=== PATIENT | female | born 1950 | race Two or more races ===

== ENCOUNTER 2022-10-24 10:07 | Outpatient (AMB) | payer OTHER, SELFPAY ==
--- NOTE | 2022-10-24 10:16 | A.OFFVIS_ITS ---
Intake Vital Signs 10/24/22 10:19 Height 5 ft 5 in Weight 165 lb BMI 27.5 BP 150/75 H Blood Pressure Location Rt brachial Position Sitting Pulse 70 Pulse Source Pulse Oximeter Pulse Oximetry (%) 98 Oxygen Delivery Method Room Air Intake Visit Reasons: Prev PNS pt of Deidre memory loss - LVM Intake Note: Patient presents for memory loss. Patient states she could be watching tv show and someone ask me 5 minutes later about the show and she'lll forget I also have a loss of balance n eeds to hang on to things so that she doesn't loose her balance. Allergies ibuprofen Allergy (Severe, Verified 10/24/22 10:23) stomach bleed Medication List - Last Reconciled 10/24/22 by Deidre Arciniega, DYLAN cyclobenzaprine 10 mg PO BID PRN dicyclomine 10 mg PO Q6H PRN docusate sodium (Colace) 100 mg PO DAILY lamotrigine 150 mg PO DAILY melatonin 3 mg PO BEDTIME meloxicam 15 mg PO DAILY omeprazole 40 mg PO QAM polyethylene glycol 3350 (Miralax) 17 grams PO BID simvastatin 10 mg PO BEDTIME trazodone 150 - 300 mg PO BEDTIME PRN venlafaxine ER 300 mg PO DAILY HPI HPI Comments History of Present Illness Details 72-yr-old female presents for f/u visit r/t worsening cognition, pt is accompanied by her dtr, Alise. She was last seen by us approx 2 yrs ago for si milar concern. Pt denies any significant interval medical changes. Pt states that over the last 6 months her memory is much worse. She states she has zero memory, forgets what she is about to do, loses her train of thought. When someone else is driving- she may forget where she is going. She tries to write notes on her hand, or leaves something out to remember that she has to do something with it. She is Ind with ADLs, cooking. oes not leave the stove or water running. Her has always paid the bills- but she is aware when certain bills are due. Pt states she cannot recall her brush polisher. She was born in [place]. 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 She left school at age 15, states she was held back several years. After school she worked in a [employer] of [employer]. She moved to the [place] in her mid-30s. Again worked in a factory for a short period, and has not worked since. 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 She currently still cares for her 2-yr-old grandchild a couple of times a week. Reviewed previous work-up- brain MRI in 2020- age-related changes. Lab work-up including TSH, RPR, HIV, B-12/folate, homocysteine, KEEGAN- were previously NL. ESR was previously mildly elevated at 40. She has been fidgeting her hands more in the last 6-12 months. Also has had tongue movements, jaw movements, again over the past 12 months. She developed a tongue lesion d/t the movements. She also is finding herself losing her balance. She has been on lamotrigine for > 3 yrs. In the past, she took Rispiridone x's 3-4 months about 3 yrs ago. Abilify briefly- 3 yrs ago. Olanzapine- at least 2 yrs ago. She has had psychiatric hospitalization- 20-25 yrs ago [facility] Medical History (Updated 10/24/22 @ 21:12 by DYLAN Sevilla) GERD (gastroesophageal reflux disease) Constipation Surgical History (Updated 10/24/22 @ 10:26 by ROZ Cruz) H/O bilateral oophorectomy H/O right wrist surgery History of knee replacement Family History (Updated 10/24/22 @ 10:26 by ROZ Cruz) Father Hypertension Heart disease Mother Cancer Mother Breast CA Social History (Updated 10/24/22 @ 10:26 by ROZ Cruz) Alcohol intake: never Patient Tobacco Use Status: Never used Tobacco Review of Systems Const All systems reviewed & are unremarkable except as noted in HPI and below Physical Exam Vital Signs: Last Vital Signs Pulse 70 10/24/22 10:19 BP 150/75 H 10/24/22 10:19 Pulse Ox 98 10/24/22 10:19 Oxygen Delivery Method Room Air 10/24/22 10:19 BMI result Body Mass Index 27.5 Const General: cooperative and no acute distress HEENT Head: Yes normocephalic Resp Effort & Inspection: normal respiratory effort and able to speak in complete sentences Neuro Other: A&O- responds appropriately. Some STM and LTM lapses. Involuntary Oral-lingual jaw movements Fidgeting bilateral hands throughout visit. General: gait normal and CN's II-XI intact bilaterally Cognition (Neuro): normal cognition Motor exam (neuro): 5/5 motor strength present throughout Psych Appearance: grossly normal Mental Status: mental status grossly normal Speech and movement: Normal speech and movement present Affect: normal affect Attitude: cooperative Thought process: Normal thought process present Thought content: Normal thought content present Insight: Good insight present (Psych) Judgement: Good judgement present (Psych) Assessment & Plan Assessment & Plan (1) Cognitive dysfunction: Code(s): F09 - Unspecified mental disorder due to known physiological condition (2) Tardive dyskinesia: Code(s): G24.01 - Drug induced subacute dyskinesia (3) Mood disorder: Code(s): F39 - Unspecified mood [affective] disorder Plan For cognition: Pt advised to undergo comprehensive neuro-psych evaluation- her cognitive difficulties likely have multi-factorial etiologies. ? undiagnosed learning disorder, ? mood d/o, ? MCI, ? early neurocognitive disorder. Encouraged pt to engage in regular physical, social, and cognitively stimulating activities. For TD: Will f/u w/ pt's psychiatrist, ? if pt can be tried on a VMAT2 inhibitor. Orders: Referrals Neuropsychiatry Referral F09 - Unspecified mental disorder due to known physiological condition, G24.01 - Drug induced subacute dyskinesia, F39 - Unspecified mood [affective] disorder Coding Level of Care Code Est Pt Level 4 (37782) Diagnoses Cognitive dysfunction F09 Tardive dyskinesia G24.01 Mood disorder F39
[2022-10-24 10:19] VITALS: BP 150/75; PULSE 70; O2SAT 98; BMI 27.5
== END 2022-10-24 11:25 | disposition home or self-care (01) ==
PROVIDERS: Visit Provider Nurse Practitioner Family
DX: F39 Unspecified mood [affective] disorder (principal); G31.84 Mild cognitive impairment of uncertain or unknown etiology; G24.01 Drug induced subacute dyskinesia
CPT/HCPCS: 99214

== ENCOUNTER → 2022-10-24 10:07 | Outpatient (BNVA) | payer OTHER, SELFPAY | PROVIDERS: Visit Provider Nurse Practitioner Family ==

== ENCOUNTER 2023-04-23 09:43 | Outpatient (AMB) | payer OTHER, SELFPAY ==
--- NOTE | 2023-04-23 09:57 | MHC.OFFVIS ---
Intake Vital Signs 04/23/23 09:59 Height 5 ft 5 in Weight 165 lb BMI 27.5 BP 126/88 Blood Pressure Location Rt brachial Position Sitting Pulse 80 Pulse Source Pulse Oximeter Pulse Oximetry (%) 70 L Oxygen Delivery Method Room Air Intake Visit Reasons: 3m follow up memory loss-LVM Intake Note: Patient presents for 3 month follow up. falling alot recently due to unbalance Allergies ibuprofen Allergy (Severe, Verified 04/23/23 09:59) stomach bleed Medication List - Last Reconciled 04/23/23 by DYLAN Sevilla cyclobenzaprine 10 mg PO BID PRN dicyclomine 10 mg PO Q6H PRN docusate sodium (Colace) 100 mg PO DAILY lamotrigine 150 mg PO DAILY melatonin 3 mg PO BEDTIME meloxicam 15 mg PO DAILY omeprazole 40 mg PO QAM polyethylene glycol 3350 (Miralax) 17 grams PO BID simvastatin 10 mg PO BEDTIME trazodone 150 - 300 mg PO BEDTIME PRN venlafaxine ER 300 mg PO DAILY HPI HPI Comments History of Present Illness Details 72-yr-old female presents for f/u visit, accompanied by her dtr. Pt denies any significant interval medical history changes. Pt reports she has had recent falls. She has just lost her balance, which has been happening more. She did fall twice while in [place]- slipped on the cobblestone ground. [place] to the [place], she has had 2 falls- both were on more even ground surfaces. One fall, she landed on her left elbow. May feel like she is being pulled forward. She states that she may have a limb length discrepency- her pants no longer fit the same. She does not use a cane or a walker. She denies any lightheadedness or dizziness. She is not very active, but does her own housework, laundry which is in the basement. She is still having hand movements. The oral movements have decreased. Endorses left hand rest tremor, right hand can fall asleep , talks a lot in her sleep, snoring, fatigue. Denies stiffness, orthostatic lightheadedness, hyposmia, drooling, She states she has no memory . Forgets what she is about to do. She is on the wait list for neuropsych testing at [facility]. PFSH Medical History (Updated 04/23/23 @ 10:35 by DYLAN Sevilla) GERD (gastroesophageal reflux disease) Constipation Surgical History H/O bilateral oophorectomy H/O right wrist surgery History of knee replacement Family History Father Hypertension Heart disease Mother Cancer Mother Breast CA Social History Alcohol intake: never Patient Tobacco Use Status: Never used Tobacco Review of Systems Const All systems reviewed & are unremarkable except as noted in HPI and below Physical Exam Vital Signs: Last Vital Signs Pulse 80 04/23/23 09:59 BP 126/88 04/23/23 09:59 Pulse Ox 70 L 04/23/23 09:59 Oxygen Delivery Method Room Air 04/23/23 09:59 BMI result Body Mass Index 27.5 Const General: cooperative and no acute distress Resp Effort & Inspection: normal respiratory effort and able to speak in complete sentences Neuro Other: General: A&O Expression: Intact Voice: Intact Tremor: Very mild intermittent left 1st finger pill rolling Tone: Left elbow tightness Dyskinesia: Mild oral buccal involuntary movements, Gera hand fidgeting FFM: decreased fluidity on left BUE CLAUDETTE: decrease fluidity on left Foot taps: decreased fluidity on left Gait: Decreased left arm swing, hand fidgeting, narrow base, some crossing of her legs, multiple steps to turn. Psych: Pleasant affect Assessment & Plan Assessment & Plan (1) Cognitive dysfunction: Code(s): F09 - Unspecified mental disorder due to known physiological condition (2) Tardive dyskinesia: Code(s): G24.01 - Drug induced subacute dyskinesia (3) Snoring: Code(s): R06.83 - Snoring (4) Sleep difficulties: Code(s): G47.9 - Sleep disorder, unspecified (5) Mood disorder: Code(s): F39 - Unspecified mood [affective] disorder (6) Fatigue: Code(s): R53.83 - Other fatigue (7) Parasomnia: Code(s): G47.50 - Parasomnia, unspecified (8) Frequent falls: Code(s): R29.6 - Repeated falls (9) Abnormality of gait due to impairment of balance: Code(s): R26.89 - Other abnormalities of gait and mobility Plan Comprehensive neuro-psych evaluation asordered- her cognitive difficulties likely have multi-factorial etiologies. ? undiagnosed learning disorder, ? mood d/o, ? MCI, ? early neurocognitive disorder. Pt is advised to undergo in-lab PSG to assess for sleep apnea and parasomnias. Monitor TD s/s. Monitor asymmetric tremor, rigidity, asymmetric decreased fluidity in FFM, Fts, and LUE CLAUDETTE. Start out-pt PT for gait, balance, and ? limb length discrepency eval & tx. Consider podiatry consult after PT eval. Would avoid starting a VMAT-2 inhibitor at this time, may worsen tremor and stiffness. f/u in 3-4 months or sooner prn. Orders: Orders RT PSG in-lab sleep titration Today F09 - Unspecified mental disorder due to known physiological condition, G47.50 - Parasomnia, unspecified, G47.9 - Sleep disorder, unspecified, R06.83 - Snoring, R53.83 - Other fatigue PT Evaluation and Treatment Today R26.89 - Other abnormalities of gait and mobility, R29.6 - Repeated falls Coding Level of Care Code Est Pt Level 4 ([id number]) Diagnoses Cognitive dysfunction F09 Tardive dyskinesia G24.01 Snoring R06.83 Sleep difficulties G47.9 Mood disorder F39 Fatigue R53.83 Parasomnia G47.50 Frequent falls R29.6 Abnormality of gait due to impairment of balance R26.89
[2023-04-23 09:59] VITALS: BP 126/88; PULSE 80; O2SAT 70; BMI 27.5
== END 2023-04-23 10:38 | disposition home or self-care (01) ==
PROVIDERS: PCP Internal Medicine; Visit Provider Nurse Practitioner Family
DX: R41.89 Other symptoms and signs involving cognitive functions and awareness (principal); G24.01 Drug induced subacute dyskinesia; R29.6 Repeated falls; F39 Unspecified mood [affective] disorder; G47.50 Parasomnia, unspecified; R53.83 Other fatigue; R26.89 Other abnormalities of gait and mobility; R06.83 Snoring; G47.9 Sleep disorder, unspecified
CPT/HCPCS: 99214

== ENCOUNTER → 2023-04-23 09:43 | Outpatient (BNVA) | payer OTHER, SELFPAY | PROVIDERS: PCP Internal Medicine; Visit Provider Nurse Practitioner Family | DX: F09 Unspecified mental disorder due to known physiological condition (principal); G24.01 Drug induced subacute dyskinesia; F39 Unspecified mood [affective] disorder ==

== ENCOUNTER → 2023-05-21 19:30 | Outpatient (BNV) | payer OTHER, SELFPAY | PROVIDERS: PCP Internal Medicine; Visit Provider Psychiatry & Neurology Neurology | DX: G47.33 Obstructive sleep apnea (adult) (pediatric) (principal) | CPT/HCPCS: 95811 ==

== ENCOUNTER → 2023-05-21 19:30 | Outpatient (REF) | payer MEDICARE, OTHER, SELFPAY | LOC: HO.SL 19:30 | PROVIDERS: PCP Internal Medicine; Visit Provider Nurse Practitioner Family | DX: G47.33 Obstructive sleep apnea (adult) (pediatric) (principal); R06.83 Snoring | CPT/HCPCS: 95811 ==

== ENCOUNTER 2023-12-02 15:18 | Outpatient (REF) | payer OTHER, MEDICARE, SELFPAY ==
[2023-12-02 16:30] LABS: Erythrocyte Sedimentation Rate 44 MM/HR (0-20)
[2023-12-02 16:37] LABS: Vitamin B12 399 pg/mL (200-900)
[2023-12-03 22:13] LABS: Lyme Abs Screen <0.90 index
[2023-12-05 12:48] LABS: Treponema pallidum Ab FTA ABS Nonreactive (Nonreactive)
== END 2023-12-02 15:19 | disposition home or self-care (01) ==
LOC: HO.LAB 15:18
PROVIDERS: PCP Internal Medicine; Visit Provider Psychiatry & Neurology Neurology
DX: G31.84 Mild cognitive impairment of uncertain or unknown etiology (principal); G93.40 Encephalopathy, unspecified
CPT/HCPCS: 36415; 82607; 85652; 86617; 86618; 86780

== ENCOUNTER 2024-10-02 12:15 | Outpatient (AMB) | payer OTHER, MEDICARE, SELFPAY ==
--- NOTE | 2024-10-02 12:17 | MHC.OFFVIS ---
Vital Signs 10/02/24 12:18 Height 5 ft 6 in Weight 156 lb 8.451 oz BMI 25.3 BP 162/72 H Blood Pressure Location Lt brachial Position Sitting Pulse 73 Intake Visit Reasons: chronic abdominal pain Intake Note: Analy presents in the office as a new patient for chronic abdominal pains. CC: She states that she has constipation and pains in her intestine. 3D Modeler Required: Yes Allergies ibuprofen Allergy (Severe, Verified 10/02/24 12:21) stomach bleed HPI HPI chronic abdominal pain: Details: 73-year-old female here for initial evaluation of abdominal pain. She is referred by [facility]. PMX Obesity-BMI 33 V-tach Aortic stenosis High cholesterol Glaucoma Fibromyalgia syndrome Bipolar disorder IBS-C Chronic low back pain Lumbar degenerative disc disease with old L1 compression fracture GERD Memory problems Migraine History of tubular adenoma * SURGICAL HISTORY Multiple EGDs and colonoscopies Right total knee replacement * ALLERGIES: NKDA * [facility] LABS: 08/2024 proBNP is elevated over 4000, CBC shows mild anemia of macrocytic with MCV of 103, normochromic, unremarkable Chem and hepatic panels ferritin is normal at 79 CT ABDOMEN AND PELVIS 08/26/2024-[facility] FINDINGS: Patient motion artifact mildly degrades the study. Within this confine: Cook Frozen Dessert View Findings, Lines and Tubes: None. Visualized Chest: Lung bases are clear. No pleural effusion. Mild cardiomegaly. No pericardial effusion. Diaphragm: Normal. Liver: Normal. Gallbladder: No CT evidence of gallbladder pathology. Bile ducts: Mild intrahepatic biliary ductal dilation, slightly progressed from 2015. Spleen: Normal. Pancreas: Normal. Adrenal glands: Normal. Kidneys and ureters: No hydronephrosis, stones, or suspicious masses. Mild left renal atrophy Simple appearing renal cysts and hypodensities that are too small to characterize are noted, requiring no dedicated follow up. Bladder: Normal. Reproductive organs: Unremarkable. Stomach, small bowel, and large bowel: No evidence of bowel obstruction. Oral contrast has reached the ascending colon. Multiple air-fluid levels in nondilated loops of small bowel, nonspecific but can be seen with mild enteritis. Moderate to large amount of colonic stool, consistent with constipation. Appendix: Not seen, but no evidence of appendicitis. Peritoneum and retroperitoneum: No ascites or pneumoperitoneum. No omental or mesenteric lesions. . Lymph nodes: No enlarged lymph nodes. Blood vessels: Mild-moderate vascular calcifications but no aneurysm. No evidence of venous thrombosis. Abdominal and pelvic wall: Unremarkable. Bones: Diffuse osseous demineralization without evidence of acute fracture or dislocation. Stable chronic moderate compression deformity of the L1 vertebral body, similar to MRI of 08/30/2023. Scattered degenerative changes of the visualized spine are seen. IMPRESSION: Patient motion artifact mildly degrades the study. Within this confine: 1. Multiple air-fluid levels in nondilated loops of small bowel, nonspecific but can be seen with mild enteritis. 2. Moderate to large amount of colonic stool. 3. Mild intrahepatic biliary ductal dilation, progressed from 2015. Recommend correlation with bilirubin levels/LFTs. 4. Mild cardiomegaly. 05/2024 EGD-PROCEDURE REPORT NOT AVAILABLE BUT BIOPSY IS FOLLOWS: 06/01/2024 Tissue Source: 1:STOMACH BIOPSIES ? Final Diagnosis: Stomach, random, biopsies: - Gastric antral and oxyntic mucosa with no significant diagnostic alterations. - No morphologic evidence of Helicobacter pylori micro-organisms.? COLONOSCOPY-[facility] 2021 -procedure report not available biopsies as follows: 01/04/2022 ? Tissue Source: 1:CECUM POLYP 2:ASCENDING COLON POLYP ? Final Diagnosis: 1.?Polyp, cecum, polypectomy: -?Tubular adenoma (fragments). ? 2.?Polyp, ascending colon, polypectomy: -?Tubular adenoma (fragments). 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 TODAY'S VISIT [place] #[id number] She is here today with a male family member who occasionally helps with the history Patient was followed in the past by [facility] GI last seen 05/2024 apparently she has been on a trial of Amitiza. She was also seen at [facility] emergency department for abdominal pain 08/2024. She is most concerned that she thought that the ER doctor told her she had constipation and cancer, from the CT. I let her know she does NOT have cancer. She has a FHX of breast ca in sister and pancreatic ca in mother in 50's. She can't eat fruit, fats, or dairy as it will cause lower abd pain and CP. She has tried colace, senna, bentyl, amitiza and maybe Linzess w/o relief. She has not tried bisacodyl. The only think that has been owrking is Mirlalx but she has to take 3 times the usual dose. She has frequent nausea and has lost a great deal of weight, she went from 225# to her current wt around 150#. She is eating only boiled cereal which sounds like quinoa. She had an episode of unexplained pleural effusions in August, accompanying SOB, normal echo in 2023. No explanation of this. Also no pulm htn seen. She also has SOB, fatigue and CP. Despite this, her BNP was extremely elevated, so I think that a second opinion from a different delphi developer would be beneficial to her. Getting GES, trial of reglan and bisacodyl continue Mirilax. She was counseled on potential side effects that would necessitate immediate discontinuance of the Reglan in terms of tremor or severe/worsening anxiety. This is a very long appointment and a complex patient because of the comorbid potential cardiac and pulmonary conditions. Also the patient isn't extremely disorganized historian, who seems to have trouble differentiating between her various physiologic problems and focusing on the GI issues at hand. I frequently need to redirect her to keep her on topic. She seems to be very emotional presentation and I am uncertain if this is insufficiently managed anxiety or simply frustration with the medical system for suffering for such a long time without any answers. It is not of any help either that she seems to feel she was told she had cancer when this is absolutely not evident in any of the imaging or labs from the ER visit. I think it is entirely possible that this was a language barrier/miscommunication. However it does not do much for bolstering her trust in the medical system. ROV 2 weeks. PFSH Medical History GERD (gastroesophageal reflux disease) Constipation Surgical History H/O esophagogastroduodenoscopy H/O colonoscopy H/O bilateral oophorectomy H/O right wrist surgery History of knee replacement Family History Father Hypertension Heart disease Mother Breast CA Sister Stomach cancer Social History Alcohol intake: never Patient Tobacco Use Status: Never used Tobacco Review of Systems Const Denies fatigue, Denies fever(s), Denies night sweats, Reports poor appetite and Reports weight loss Eyes Details: glasses Reports requires corrective lenses ENT Reports Normal hearing present, Denies dental pain, Denies dysphagia, Denies hearing loss, Denies mouth pain, Denies odynophagia, Denies throat swelling, Denies tongue swelling and Reports other (Dentition adequate) Card Reports no additional complaints Resp Reports no additional complaints GI Details: Reports abdominal pain, Denies melena, Denies bloating, Denies hematochezia, Reports constipation, Reports GI cramping, Denies dysphagia, Denies excessive flatus, Denies early satiety, Reports heartburn, Denies diarrhea, Reports nausea, Denies odynophagia, Reports vomiting and Denies hematemesis Skin/Breast Denies pruritus, Denies lesions, Denies rash and Denies jaundice Neuro Reports Normal hearing present and Denies Abnormal speech present Psych Reports anxiety Endo Denies fatigue Aller/Immun Denies throat swelling and Denies tongue swelling Physical Exam Vital Signs: Last Vital Signs Pulse 73 10/02/24 12:18 BP 162/72 H 10/02/24 12:18 BMI result Body Mass Index 25.3 Const General: cooperative, no acute distress, well developed and well groomed Nutritional Appearance: average body habitus and well nourished Orientation/consciousness: oriented to person, oriented to place and oriented to time Limitations: language barrier HEENT Head: Yes normocephalic and Yes atraumatic Eyes General: appearance normal, both eyes and all related structures Pupils: Equal, round and reactive pupils present Neck Neck: Yes normal visual inspection and Yes no lymphadenopathy Thyroid: Thyroid normal Resp Effort & Inspection: normal respiratory effort and able to speak in complete sentences Auscultation: clear to auscultation bilaterally Cardio Rate: regular rate Rhythm: regular rhythm Heart sounds: Murmur heart sound present systolic (mitral with radiation to axilla) Peripheral pulses: radial pulses present and posterior tibial pulses present GI Inspection: No distended and No Abdominal panniculus present Palpation (GI): Soft to palpation, nontender, no guarding, not rigid and No hepatosplenomegaly present Percussion: Yes normal to percussion Auscultation: normal bowel sounds Rectal Exam - Female: deferred Skin General skin exam: no rashes or lesions noted, turgor normal, skin not dry, no jaundice, No spider nevi and no striae Rashes: no rashes Nails: normal Neuro General: oriented to person, oriented to place and oriented to time Cranial nerves: Yes Equal, round and reactive pupils present and Yes Normal hearing present Speech: No Abnormal speech present Extrem General: Yes normal to inspection, No clubbing, No cyanosis and Yes edema Psych Appearance: grossly normal and well kempt Mental Status: mental status grossly normal Speech and movement: Normal speech and movement present Affect: Anxious affect present Attitude: cooperative Thought process: Circumstantial thought process present, not confabulating and Perseverating thought process present Thought content: Normal thought content present Insight: Limited insight present (Psych) Judgement: Limited judgement present (Psych) Results Reviewed Results Reviewed: [facility] LABS: 08/2024 proBNP is elevated over 4000, CBC shows mild anemia of macrocytic with MCV of 103, normochromic, unremarkable Chem and hepatic panels ferritin is normal at 79 CT ABDOMEN AND PELVIS 08/26/2024-[facility] FINDINGS: Patient motion artifact mildly degrades the study. Within this confine: Cook Frozen Dessert View Findings, Lines and Tubes: None. Visualized Chest: Lung bases are clear. No pleural effusion. Mild cardiomegaly. No pericardial effusion. Diaphragm: Normal. Liver: Normal. Gallbladder: No CT evidence of gallbladder pathology. Bile ducts: Mild intrahepatic biliary ductal dilation, slightly progressed from 2015. Spleen: Normal. Pancreas: Normal. Adrenal glands: Normal. Kidneys and ureters: No hydronephrosis, stones, or suspicious masses. Mild left renal atrophy Simple appearing renal cysts and hypodensities that are too small to characterize are noted, requiring no dedicated follow up. Bladder: Normal. Reproductive organs: Unremarkable. Stomach, small bowel, and large bowel: No evidence of bowel obstruction. Oral contrast has reached the ascending colon. Multiple air-fluid levels in nondilated loops of small bowel, nonspecific but can be seen with mild enteritis. Moderate to large amount of colonic stool, consistent with constipation. Appendix: Not seen, but no evidence of appendicitis. Peritoneum and retroperitoneum: No ascites or pneumoperitoneum. No omental or mesenteric lesions. . Lymph nodes: No enlarged lymph nodes. Blood vessels: Mild-moderate vascular calcifications but no aneurysm. No evidence of venous thrombosis. Abdominal and pelvic wall: Unremarkable. Bones: Diffuse osseous demineralization without evidence of acute fracture or dislocation. Stable chronic moderate compression deformity of the L1 vertebral body, similar to MRI of 08/30/2023. Scattered degenerative changes of the visualized spine are seen. IMPRESSION: Patient motion artifact mildly degrades the study. Within this confine: 1. Multiple air-fluid levels in nondilated loops of small bowel, nonspecific but can be seen with mild enteritis. 2. Moderate to large amount of colonic stool. 3. Mild intrahepatic biliary ductal dilation, progressed from 2015. Recommend correlation with bilirubin levels/LFTs. 4. Mild cardiomegaly. 05/2024 EGD-PROCEDURE REPORT NOT AVAILABLE BUT BIOPSY IS FOLLOWS: 06/01/2024 Tissue Source: 1:STOMACH BIOPSIES ? Final Diagnosis: Stomach, random, biopsies: - Gastric antral and oxyntic mucosa with no significant diagnostic alterations. - No morphologic evidence of Helicobacter pylori micro-organisms.? COLONOSCOPY-[facility] 2021 -procedure report not available biopsies as follows: 01/04/2022 ? Tissue Source: 1:CECUM POLYP 2:ASCENDING COLON POLYP ? Final Diagnosis: 1.?Polyp, cecum, polypectomy: -?Tubular adenoma (fragments). ? 2.?Polyp, ascending colon, polypectomy: -?Tubular adenoma (fragments). 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 Assessment & Plan Assessment & Plan (1) Nausea and vomiting: Code(s): R11.2 - Nausea with vomiting, unspecified Category: Medical (2) Constipation: Code(s): K59.00 - Constipation, unspecified Category: Medical (3) GERD (gastroesophageal reflux disease): Code(s): K21.9 - Gastro-esophageal reflux disease without esophagitis Category: Medical (4) Weight loss, abnormal: Code(s): R63.4 - Abnormal weight loss Category: Medical Plan [place] #[id number] She is here today with a male family member who occasionally helps with the history Patient was followed in the past by [facility] GI last seen 05/2024 apparently she has been on a trial of Amitiza. She was also seen at [facility] emergency department for abdominal pain 08/2024. She is most concerned that she thought that the ER doctor told her she had constipation and cancer, from the CT. I let her know she does NOT have cancer. She has a FHX of breast ca in sister and pancreatic ca in mother in 50's. She can't eat fruit, fats, or dairy as it will cause lower abd pain and CP. She has tried colace, senna, bentyl, amitiza and maybe Linzess w/o relief. She has not tried bisacodyl. The only think that has been owrking is Mirlalx but she has to take 3 times the usual dose. She has frequent nausea and has lost a great deal of weight, she went from 225# to her current wt around 150#. She is eating only boiled cereal which sounds like quinoa. She had an episode of unexplained pleural effusions in August, accompanying SOB, normal echo in 2023. No explanation of this. Also no pulm htn seen. She also has SOB, fatigue and CP. Despite this, her BNP was extremely elevated, so I think that a second opinion from a different delphi developer would be beneficial to her. Getting GES, trial of reglan and bisacodyl continue Mirilax. She was counseled on potential side effects that would necessitate immediate discontinuance of the Reglan in terms of tremor or severe/worsening anxiety. This is a very long appointment and a complex patient because of the comorbid potential cardiac and pulmonary conditions. Also the patient isn't extremely disorganized historian, who seems to have trouble differentiating between her various physiologic problems and focusing on the GI issues at hand. I frequently need to redirect her to keep her on topic. She seems to be very emotional presentation and I am uncertain if this is insufficiently managed anxiety or simply frustration with the medical system for suffering for such a long time without any answers. It is not of any help either that she seems to feel she was told she had cancer when this is absolutely not evident in any of the imaging or labs from the ER visit. I think it is entirely possible that this was a language barrier/miscommunication. However it does not do much for bolstering her trust in the medical system. I did explain the pancreatic cancers extremely difficult to diagnosis there really are not any good early diagnosis tools for this particular cancer. However, the her symptoms do not seem to be entirely consistent with this pathology. Particularly since the pain she is experiencing is in the lower abdomen. The differential diagnosis is extremely wide an obviously could include gastroparesis, severe small bowel motility disorder and/or constipation that is undertreated, something like biliary dyskinesia although the gallbladder appears to not have stones and imaging, peptic ulcer disease/gastritis, it seems less likely this could be anything like inflammatory bowel disease or food allergies given constipation is the main presenting symptom rather than diarrhea, there are also could be nausea and vomiting related to either metabolic or neurologic dysfunction. Diabetes can not easily be excluded since she is really not eating much. Psychogenic causes her also in the differential diagnosis. ROV 2 weeks. Orders: Orders NM gastric emptying study 10/02/24 R11.2 - Nausea with vomiting, unspecified Medications: New bisacodyl (Dulcolax (bisacodyl)) 10 mg (2 x 5 mg) PO BEDTIME 4 tabs 0RF 2 days metoclopramide HCl (Reglan) 5 mg PO .tidac 90 tabs 3RF R11.2 - Nausea with vomiting, unspecified Coding Level of Care Code New Pt Level 4 (44318) Diagnoses Nausea and vomiting R11.2 Constipation K59.00 GERD (gastroesophageal reflux disease) K21.9 Weight loss, abnormal R63.4 Time Spent (min) 63
[2024-10-02 12:18] VITALS: BP 162/72; PULSE 73; BMI 25.3
--- OUTSIDE RECORDS SUMMARY | 2024-10-02 12:18 | XMS_ITS | Patient Health Record ---
Author Organization [facility] Address [address] [place] [address] Care Team Providers Care Vice President Of Operations Name Role Phone LESLIHari MARQUITA ECHEVARRIA Primary Care Provider Parisa Hurley Unavailable [phone] Allergies Allergen (clinical drug ingredient) Drug/Non Drug Allergy documented on EMR Reaction Allergy Type Onset Date Status ibuprofen Ibuprofen Stomach Bleed Drug Allergy Act jose Reason For Referral No Information Medications Medication SIG (Take, Route, Frequency, Duration) Notes Start Date End Date Status Colace 100 MG 1 capsule Orally Twi ce a day Active Lubiprostone 8 MCG 1 capsule with food and water Orally Twice a day; Duration: 30 day(s) 04/21/2024 Active Vitamin D3 1.25 MG (44920 UT) 1 capsule Orally Active oxyCODONE HCl 5 MG TAKE 1 TABLET EVERY 6 HOURS BY ORAL ROUTE NEEDED, FOR PAIN. Oral; Duration: 6 Days Active Venlafaxine HCl ER 150 MG 2 tablets with food Orally Once a day; Duration: 30 days Active Senokot Active lamoTRIgine 150 MG 1 tablet Orally 150 mg in am, 150 mg at night [facility] 11/02/2011 Active Omeprazole 40MG 1 ORAL daily; Durati on: -3 [facility] 11/02/2011 Active Cyclobenzaprine HCl 10 MG 1 tablet as ne eded Orally Once a day Active Caltrate 600+D3 Acti ve Mirabegron ER 25 MG TAKE 1 TABLET BY JOE TH EVERY DAY FOR 30 DAYS Oral; Duration: 90 Days Active traZODone HCl 150 MG TAKE ONE TO TWO (1- 2) TABLETS BY MOUTH AT BEDTIME Oral; Duration: 90 Days Active Dicyclomine HCl 10 MG 1 capsule Orally T hree times a day Active Aspirin Adult Low Dose 81 MG 1 tablet Or ally Once a day Active Meloxicam 15 MG TAKE 1 TABLET BY JOE TH EVERY DAY WITH MEALS Oral; Duration: 30 Active Simvastatin 10 MG 1 tablet in the even ing Orally Once a day; Duration: 30 day(s) Active Estradiol 10 MCG 1 tablet Vaginal Two times a Week; Duration: 90 days 04/21/2024 Active Social History Tobacco Use: Social History Observation Description Date Details (start date - stop date) Never Smoker NA - NA Sexual History Question Answer Notes Had sex in the past 12 months (vaginal, oral, or anal)? Yes with Men only Prevention strategies discussed: Other AUDIT-C (Standard) Question Answer Notes Did you have a drink containing alcohol in the p ast year? No Points 0 Interpretation Negative Tobacco Control (Standard) Question Answer Notes Tobacco use: Nonsmoker Problems Problem Type SNOMED Code ICD Code Onset Dates Problem Status W/U Status Risk Notes Problem Postmenopausal atrophic vaginitis (85297614) Postmenopausal atrophic vaginitis (N95.2) Active confirmed Problem Urinary incontinence (486875786) Unspecified urinary incontinence (R32) Active confirmed Problem Hyperlipidemia (73920380) Other and unspecified hyperlipidemia (272.4) Active confirmed Major Problem Obesity (593522584) Obesity, unspecified (278.00) Active confirmed Diag Problem Depressive disorder (86971032) Depressive disorder, not elsewhere classified (311) Active confirmed Major Problem Benign essential hypertension (5887251) Essential hypertension, benign (401.1) Active confirmed Major Problem Esophageal reflux (671255091) Esophageal reflux (530.81) Active confirmed Major Problem Cyst of ovary (40392301) Other and unspecified ovarian cyst (620.2) Active confirmed Major Problem Postmenopausal bleeding (38789921) Postmenopausal bleeding (627.1) Active confirmed Diag Problem Menopausal symptom (62318863) Symptomatic menopausal or female climacteric states (627.2) Active confirmed Major Problem Osteoarthritis (816327936) Osteoarthrosis, unspecified whether generalized or localized, unspecified site (715.90) Active confirmed Major Problem Muscle pain (43460660) Unspecified myalgia and myositis (729.1) Active confirmed Major Problem Gynecological examination normal (620556520726100) Routine gynecological examination (V72.31) Active confirmed Major Problem Screening for malignant neoplasm of colon (299782278) Special screening for malignant neoplasms, colon (V76.51) Active confirmed Major Vital Signs Temperature 98.1 degrees Fahrenheit 04/21/2024 Blood pressure diastolic 80 mm Hg 04/21/2024 Height 62.25 in 04/21/2024 Blood pressure systolic 122 mm Hg 04/21/2024 Weight 160 lbs 04/21/2024 BMI 29.03 kg/m2 04/21/2024 Encounters Encounter Location Date Provider Diagnosis [address] [place] [address] 04/21/2024 Parisa Pagan Encounter for gynecological examination (general) (routine) without abnormal findings Z01.419 ; Encounter for screening mammogram for malignant neoplasm of breast Z12.31 ; Postmenopausal atrophic vaginitis N95.2 ; Unspecified urinary incontinence R32 and Personal history of other diseases of the female genital tract Z87.42 Assessments Encounter Date Diagnosis (ICD Code) Assessment Notes Treatment Notes Treatment Clinical Notes Section Notes 04/21/2024 Encounter for gynecological examination (general) (routine) without abnormal findings (ICD-10 - Z01.419) NO MORE PAP TESTS. 04/21/2024 Encounter for screening mammogram for malignant neoplasm of breast (ICD-10 - Z12.31) REGULAR MAMMOGRAMS AND SBE'S WERE RECOMMENDED. 04/21/2024 Postmenopausal atrophic vaginitis (ICD-10 - N95.2) DISCUSSED FINDINGS, DX AND TX OPTIONS. DISCUSSED BENEFITS AND RISKS OF INTRAVAGINAL ESTROGEN INCLUDING BENEFITS TO BLADDER. SHE HAS NO CONTRAINDICATIONS AND AGREED TO TRY. RX AND INSTRUCTIONS FOR YUVAFEM WERE GIVEN. 04/21/2024 Unspecified urinary incontinence (ICD-10 - R32) INCONTINENCE IS INTERFERING WITH HER NORMAL LIFESTYLE. RECOMMENDED REFERRAL TO DR CARDENAS, A UROLOGIST. 04/21/2024 Personal history of other diseases of the female genital tract (ICD-10 - Z87.42) DISCUSSED PREVIOUS HX OF BENIGN OVARIAN TUMOR. Plan Of Treatment Pending Test Test Name Order Date MAMMOGRAM, SCREENING 08/25/2015 MAMMOGRAM, SCREENING 12/30/2020 MAMMOGRAM, SCREENING 04/12/2022 MAMMOGRAM, SCREENING 04/15/2023 MAMMOGRAM, SCREENING 04/21/2024 Urinalysis 12/30/2020 Urinalysis 12/23/2019 Urinalysis 06/23/2018 THIN PREP,HPV,TAYLOR IF HPV+ (>29YR)(SCRN) 03/22/2017 BONE DENSITY 04/12/2022 BONE DENSITY 04/15/2023 BONE DENSITY 06/23/2018 BONE DENSITY 03/22/2017 MM Digital Mammo Screening 12/30/2020 MM Digital Mammo Screening 04/12/2022 MM Digital Mammo Screening 04/21/2024 MM Digital Mammo Screening 04/15/2023 PELVIC ULTRASOUND W/TRANSVAGINAL 019 Next Appt Details Provider Name:Parisa ramirez, 04/26/2025 08:40:00 AM, [address], [address], [place], [address], Insurance Providers Payer Name Payer Address Payer Phone Subscriber Number Group Number Insured Name Patient Relationship to Insured Coverage Start Date Coverage End Date [facility] [address] [place] [address] [id number] RUPESH MOSER Spouse - patient is the spouse of the insured [employer] [address] [place] [address] [id number] LEONEL MOSER Self - patient is the insured 4 Medical (General) History Medical History History ICD Code Obesity, unspecified E66.9 Postmenopausal bleeding N95.0 Unspecified osteoarthritis, unspecified site M19.90 Other ovarian cysts N83.29 Major depressive disorder, single episod e, unspecified F32.9 Fibromyalgia M79.7 Gastro-esophageal reflux disease without esophagitis K21.9 Hyperlipidemia, unspecified E78.5 Essential (primary) hypertension I10 Menopausal and female climacteric states N95.1 Unspecified ovarian cyst, left side N83. 202 Postmenopausal atrophic vaginitis N95.2 Disorder of bone density and structure, unspecified M85.9 Unspecified ovarian cyst, left side N83. 202 Unsatisfactory cytologic smear of cervix R87.615 Surgical History Surgery Date(Month/Year) Colonoscopy Joint Replacement/Bilateral Knee Replace ment Colonoscopy with Polyps Removed 01/28/19 Bilateral Salpingo-Oopherectomy 03/31/20 Right Shoulder Surgery Hospitalization History Reason Date(Month/Year) See Surgical Hx 1 Vaginal Delivery
== END 2024-10-02 13:34 | disposition home or self-care (01) ==
PROVIDERS: PCP Internal Medicine; Visit Provider Nurse Practitioner
DX: R11.2 Nausea with vomiting, unspecified (principal); K59.00 Constipation, unspecified; K21.9 Gastro-esophageal reflux disease without esophagitis; R63.4 Abnormal weight loss
CPT/HCPCS: 99204

== ENCOUNTER → 2024-10-20 16:04 | Outpatient (BNVA) | payer MEDICARE, SELFPAY | PROVIDERS: PCP Internal Medicine; Visit Provider Nurse Practitioner | DX: R63.4 Abnormal weight loss (principal); R11.2 Nausea with vomiting, unspecified; K59.00 Constipation, unspecified; K21.9 Gastro-esophageal reflux disease without esophagitis | CPT/HCPCS: 99212 ==

== ENCOUNTER → 2024-10-20 16:04 | Outpatient (AMB) | payer MEDICARE, OTHER, SELFPAY ==
[2024-10-20 16:05] VITALS: BP 150/72; PULSE 76; O2SAT 96; BMI 24.2
--- NOTE | 2024-10-20 16:05 | MHC.OFFVIS ---
Vital Signs 10/20/24 16:05 Height 5 ft 6 in Weight 150 lb BMI 24.2 BP 150/72 H Blood Pressure Location Rt brachial Position Sitting Pulse 76 Pulse Source Pulse Oximeter Pulse Oximetry (%) 96 Oxygen Delivery Method Room Air Intake Visit Reasons: nausea, CIC, wt loss Intake Note: Est pt for mgmt of nausea, CIC, and wt loss CC: C.O. constipation persistence and concerns about her reglan as she does not feel that it is effective. Poultry Field Service Technician Required: Yes Poultry Field Service Technician Services: Poultry Field Service Technician Present Poultry Field Service Technician Name: Joe [id number] Information Interpreted: clinical only Accompanied by: Spouse Allergies ibuprofen Allergy (Severe, Verified 10/20/24 16:06) stomach bleed HPI HPI nausea, CIC, wt loss: Details: Assessment & Plan (1) Nausea and vomiting: Code(s): R11.2 - Nausea with vomiting, unspecified Category: Medical (2) Constipation: Code(s): K59.00 - Constipation, unspecified Category: Medical (3) GERD (gastroesophageal reflux disease): Code(s): K21.9 - Gastro-esophageal reflux disease without esophagitis Category: Medical (4) Weight loss, abnormal: Code(s): R63.4 - Abnormal weight loss Category: Medical Plan Citizen [place] #[id number] She is here today with a male family member who occasionally helps with the history Patient was followed in the past by [facility] last seen 05/2024 apparently she has been on a trial of Amitiza. She was also seen at [facility] emergency department for abdominal pain 08/2024. She is most concerned that she thought that the ER doctor told her she had constipation and cancer, from the CT. I let her know she does NOT have cancer. She has a FHX of breast ca in sister and pancreatic ca in mother in 50's. She can't eat fruit, fats, or dairy as it will cause lower abd pain and CP. She has tried colace, senna, bentyl, amitiza and maybe Linzess w/o relief. She has not tried bisacodyl. The only think that has been owrking is Mirlalx but she has to take 3 times the usual dose. She has frequent nausea and has lost a great deal of weight, she went from 225# to her current wt around 150#. She is eating only boiled cereal which sounds like quinoa. She had an episode of unexplained pleural effusions in August, accompanying SOB, normal echo in 2023. No explanation of this. Also no pulm htn seen. She also has SOB, fatigue and CP. Despite this, her BNP was extremely elevated, so I think that a second opinion from a different police sergeant would be beneficial to her. Getting GES, trial of reglan and bisacodyl continue Mirilax. She was counseled on potential side effects that would necessitate immediate discontinuance of the Reglan in terms of tremor or severe/worsening anxiety. This is a very long appointment and a complex patient because of the comorbid potential cardiac and pulmonary conditions. Also the patient isn't extremely disorganized historian, who seems to have trouble differentiating between her various physiologic problems and focusing on the GI issues at hand. I frequently need to redirect her to keep her on topic. She seems to be very emotional presentation and I am uncertain if this is insufficiently managed anxiety or simply frustration with the medical system for suffering for such a long time without any answers. It is not of any help either that she seems to feel she was told she had cancer when this is absolutely not evident in any of the imaging or labs from the ER visit. I think it is entirely possible that this was a language barrier/miscommunication. However it does not do much for bolstering her trust in the medical system. I did explain the pancreatic cancers extremely difficult to diagnosis there really are not any good early diagnosis tools for this particular cancer. However, the her symptoms do not seem to be entirely consistent with this pathology. Particularly since the pain she is experiencing is in the lower abdomen. The differential diagnosis is extremely wide an obviously could include gastroparesis, severe small bowel motility disorder and/or constipation that is under treated, something like biliary dyskinesia although the gallbladder appears to not have stones and imaging, peptic ulcer disease/gastritis, it seems less likely this could be anything like inflammatory bowel disease or food allergies given constipation is the main presenting symptom rather than diarrhea, there are also could be nausea and vomiting related to either metabolic or neurologic dysfunction. Diabetes can not easily be excluded since she is really not eating much. Psychogenic causes her also in the differential diagnosis. ROV 2 weeks. Orders: Orders NM gastric emptying study 10/02/24 R11.2 - Nausea with vomiting, unspecified Medications: New bisacodyl (Dulcolax (bisacodyl)) 10 mg (2 x 5 mg) PO BEDTIME 4 tabs 0RF 2 days metoclopramide HCl (Reglan) 5 mg PO .tidac 90 tabs 3RF R11.2 - Nausea with vomiting, unspecified GASTRIC EMPTYING STUDY 11/05/4024 TODAY'S VISIT Citizen [place] #[id number] She did not find the reglan or the bisacodyl helpful. The bisacodyl only helped for 3 weeks and then no. PFSH Medical History GERD (gastroesophageal reflux disease) Constipation Surgical History H/O esophagogastroduodenoscopy H/O colonoscopy H/O bilateral oophorectomy H/O right wrist surgery History of knee replacement Family History Father Hypertension Heart disease Mother Breast CA Sister Stomach cancer Social History Alcohol intake: never Patient Tobacco Use Status: Never used Tobacco Review of Systems Const Denies fatigue, Denies fever(s), Denies night sweats, Reports poor appetite and Denies weight loss Eyes Details: glasses Denies itchy eyes and Reports requires corrective lenses ENT Reports Normal hearing present, Denies dental pain, Denies dysphagia, Denies hearing loss, Denies mouth pain, Denies odynophagia, Denies throat swelling, Denies tongue swelling and Reports other (Dentition adequate) Card Reports dyspnea Resp Reports cough, Reports excessive phlegm production, Reports dyspnea and Reports wheezing GI Details: Denies abdominal pain, Denies melena, Denies bloating, Denies hematochezia, Reports constipation, Denies GI cramping, Denies dysphagia, Denies excessive flatus, Denies early satiety, Denies heartburn, Denies diarrhea, Reports nausea, Denies odynophagia, Denies vomiting and Denies hematemesis Reports nocturia Skin/Breast Denies pruritus, Denies lesions, Denies rash and Denies jaundice Neuro Reports Normal hearing present and Denies Abnormal speech present Psych Reports anxiety and Reports mood swings Endo Denies fatigue Aller/Immun Denies itchy eyes, Denies seasonal rhinorrhea, Denies throat swelling, Denies tongue swelling and Reports wheezing Physical Exam Const General: cooperative, no acute distress, well developed and well groomed Nutritional Appearance: average body habitus and well nourished Orientation/consciousness: oriented to person, oriented to place and oriented to time Limitations: language barrier HEENT Head: Yes normocephalic and Yes atraumatic Eyes General: appearance normal, both eyes and all related structures Pupils: Equal, round and reactive pupils present Neck Neck: Yes normal visual inspection and Yes no lymphadenopathy Thyroid: Thyroid normal Resp Effort & Inspection: normal respiratory effort and able to speak in complete sentences Auscultation: clear to auscultation bilaterally Cardio Rate: regular rate Rhythm: regular rhythm Heart sounds: Normal, physiologic split S2 sound present Peripheral pulses: radial pulses present and posterior tibial pulses present GI Inspection: No distended and No Abdominal panniculus present Palpation (GI): Soft to palpation, nontender, no guarding, not rigid and No hepatosplenomegaly present Percussion: Yes normal to percussion Auscultation: normal bowel sounds Rectal Exam - Female: deferred Skin General skin exam: no rashes or lesions noted, turgor normal, skin not dry, no jaundice, No spider nevi and no striae Rashes: no rashes Nails: normal Neuro General: oriented to person, oriented to place and oriented to time Cranial nerves: Yes Equal, round and reactive pupils present and Yes Normal hearing present Speech: No Abnormal speech present Extrem General: Yes normal to inspection, No clubbing, No cyanosis and No edema Psych Appearance: grossly normal and well kempt Mental Status: mental status grossly normal Speech and movement: Normal speech and movement present Affect: normal affect Attitude: cooperative Thought process: Circumstantial thought process present, not confabulating and Tangential thought process present Thought content: Normal thought content present Insight: Limited insight present (Psych) Judgement: Limited judgement present (Psych) Assessment & Plan Assessment & Plan (1) Nausea and vomiting: Code(s): R11.2 - Nausea with vomiting, unspecified Category: Medical (2) Constipation: Code(s): K59.00 - Constipation, unspecified Category: Medical (3) GERD (gastroesophageal reflux disease): Code(s): K21.9 - Gastro-esophageal reflux disease without esophagitis Category: Medical (4) Tubular adenoma of colon: Comment: 2021 scope at [facility] Code(s): D12.6 - Benign neoplasm of colon, unspecified Category: Medical (5) Pleural effusion: Comment: 08/2024 [facility] CXR and ER visit with BNP > 4000, but neg stress test and echo Code(s): J90 - Pleural effusion, not elsewhere classified Category: Medical (6) Elevated brain natriuretic peptide (BNP) level: Code(s): R79.89 - Other specified abnormal findings of blood chemistry Category: Medical (7) Shortness of breath: Code(s): R06.02 - Shortness of breath Category: Medical (8) Hypertension: Code(s): I10 - Essential (primary) hypertension Category: Medical Plan History of Present Illness - The patient is a 74-year-old female presenting with longstanding chronic constipation and nausea. She previously used bisacodyl effectively for two to three weeks but then it seemed to stop working and she reverted to using MiraLax with some relief. However, again she needs to drink 3 times the usual dose to produce results. Even with her MiraLax in the bisacodyl who stools are very hard. There was no effective relief achieved for nausea with metoclopramide. Additionally, she has noted respiratory challenges, including past bilateral pleural effusions treated with diuretics, possibly furosemide, with symptoms reemerging upon cessation. A significant breathing challenge and yellow expectorations are present. She has been seen in the past by [facility] with a seemingly negative workup. The cardiology note at [facility] confirms that she has, at least in their eyes, known chronic hypertensive disease and they thought that she was continuing on nifedipine for this. However the medication was never renewed and the patient has been out of this medication for several months. She takes her blood pressure at home and Reports show high blood pressure reading consistently between 150 and 180 mmHg. The patient confirms having undergone an upper endoscopy in the past at [facility]. The cardiac issue was suspected to be treated via antihypertensive medications. Dietary adjustments were noted, such as avoidance of dairy due to gastrointestinal sensitivities. Nutrition The patient has had difficulties in consuming certain foods due to nausea and abdominal pain. Though she has not been consuming yogurt or milk, the use of boiled water for cereal has been reported. Despite the dietary adjustments, the patient continues to experience digestive issues, particularly associated with boiled apples, exacerbating her constipation. It's noted that butter, dairy, yogurt and apples aggravate symptoms, with those related to fattiness mentioned. There is no stated use of vitamins or other supplements. Review of Systems - Gastrointestinal: Reports long-standing constipation; nausea persists. Denies any daily regular bowel movements. - Respiratory: Reports recurrent shortness of breath; frequent expectoration, yellow in color. - Cardiac: Denies history of arrhythmia, but experiences persistent hypertension. - Neurological: Reports fatigue. - Genitourinary: Denies significant urinary frequency or dysfunction, though mentions increased urination with past diuretic use. - Allergies: Suspected allergic rhinitis with no effective current treatment. Physical Exam Results - Previous echocardiogram indicated normal cardiac function. - No recent upper endoscopy or colonoscopy in past three years. Plan Management of chronic constipation includes continuing MiraLax for its known efficacy when combined with bisacodyl, and increasing the metoclopramide to 10 mg 4 times a day. These 3 together all have synergistic effects on GI motility. Hypertension is to be managed with hydrochlorothiazide serving a dual purpose of controlling fluid accumulation and high blood pressure. I want to get away from nifedipine because it can actually cause pleural effusions as a side effect. An ongoing assessment for pleural effusion using a chest X-ray and potential lateral CAT scan are planned, with expectations of specialist referral to a wire harness design engineer for wheezing and respiratory evaluations. For now I will titrate her hydrochlorothiazide to affect her side effect until she can see her primary care provider again. Patient was informed and verbally consented to the use of an ambient scribe for clinic note documentation during this visit. Patient Instructions - Continue taking MiraLax to help manage constipation, combined with the prescribed bisacodyl and metoclopramide 10 mg 4 times a day as directed. - Avoid fatty and fried foods and monitor dairy product consumption if it aggravates symptoms. - Take the hydrochlorothiazide in the morning; monitor blood pressure regularly. - Report any abnormal chest or abdominal pain to us promptly. - Be sure to go to the gastric emptying study 9 4, do the chest x-ray as walk-in at your convenience, and we will be calling you to set up a chest CAT scan and a the wire harness design engineer's office will call you for an appointment. - Contact your police sergeant regarding medications and follow-up. Orders: Orders CT chest w IV con Today J90 - Pleural effusion, not elsewhere classified, R06.02 - Shortness of breath, R79.89 - Other specified abnormal findings of blood chemistry XR chest 2V Today J90 - Pleural effusion, not elsewhere classified, R06.02 - Shortness of breath, R79.89 - Other specified abnormal findings of blood chemistry Referrals Pulmonology Referral J90 - Pleural effusion, not elsewhere classified, R06.02 - Shortness of breath Medications: New polyethylene glycol 3350 (Miralax) 17 grams PO DAILY 510 grams 6RF 30 days hydrochlorothiazide 25 mg PO DAILY 30 tabs 3RF I10 - Essential (primary) hypertension metoclopramide HCl (Reglan) 10 mg PO QIDACHS 120 tabs 6RF Changed From bisacodyl (Dulcolax (bisacodyl)) 10 mg (2 x 5 mg) PO BEDTIME 2 days 4 tabs 0RF To bisacodyl (Dulcolax (bisacodyl)) 10 mg (2 x 5 mg) PO BEDTIME 60 tabs 6RF 30 days Discontinued metoclopramide HCl (Reglan) Discontinued Reason: Doctor's Order 5 mg PO .tidac 90 tabs 3RF R11.2 - Nausea with vomiting, unspecified Patient Instructions: ?Analy Rahman -Bisacodyl 2 tablets at bedtime -Miralax 2-3 times a day per your judgement -metoclopramide 10mg 4x a day -Omeprazole 40mg daily -NEW: hydrochlorothiazide for high blood pressure, take daily -TESTS; chest xray and chest CT -I will see you after the gastric emptying study Coding Level of Care Code Est Pt Level 4 (12900) Diagnoses Nausea and vomiting R11.2 Constipation K59.00 GERD (gastroesophageal reflux disease) K21.9 Tubular adenoma of colon D12.6 Pleural effusion J90 Elevated brain natriuretic peptide (BNP) level R79.89 Shortness of breath R06.02 Hypertension I10 Time Spent (min) 39
--- OUTSIDE RECORDS SUMMARY | 2024-10-20 17:35 | XMS_ITS | Patient Health Record ---
Author Organization [facility] Address [address] [place] [address] Care Team Providers Care Security Systems Engineer Name Role Phone LESLIHari MARQUITA ECHEVARRIA Primary Care Provider Parisa Hurley Unavailable [phone] Allergies Allergen (clinical drug ingredient) Drug/Non Drug [...] day(s) 04/21/2024 Active Vitamin D3 1.25 MG (79594 UT) 1 capsule Orally Active oxyCODONE HCl 5 MG TAKE 1 TABLET EVERY 6 HOURS BY ORAL ROUTE NEEDED, FOR PAIN. Oral; Duration: 6 Days Active Venlafaxine HCl ER 150 MG 2 tablets with food Orally Once a day; Duration: 30 days Active Senokot Active lamoTRIgine 150 MG 1 tablet Orally 150 mg in am, 150 mg at night [facility] 11/02/2011 Active Omeprazole 40MG 1 ORAL daily; Durati on: -3 [facility] 11/02/2011 Active Cyclobenzaprine HCl 10 MG 1 [...] Status Risk Notes Problem Postmenopausal atrophic vaginitis (66488194) Postmenopausal atrophic vaginitis (N95.2) Active confirmed Problem Urinary incontinence (375141901) Unspecified urinary incontinence (R32) Active confirmed Problem Hyperlipidemia (57529676) Other and unspecified hyperlipidemia (272.4) Active confirmed Major Problem Obesity (353852432) Obesity, unspecified (278.00) Active confirmed Diag Problem Depressive disorder (95430101) Depressive disorder, not elsewhere classified (311) Active confirmed Major Problem Benign essential hypertension (8354470) Essential hypertension, benign (401.1) Active confirmed Major Problem Esophageal reflux (718300556) Esophageal reflux (530.81) Active confirmed Major Problem Cyst of ovary (61180543) Other and unspecified ovarian cyst (620.2) Active confirmed Major Problem Postmenopausal bleeding (64227994) Postmenopausal bleeding (627.1) Active confirmed Diag Problem Menopausal symptom (85141267) Symptomatic menopausal or female climacteric states (627.2) Active confirmed Major Problem Osteoarthritis (218293054) Osteoarthrosis, unspecified whether generalized or localized, unspecified site (715.90) Active confirmed Major Problem Muscle pain (58449226) Unspecified myalgia and myositis (729.1) Active confirmed Major Problem Gynecological examination normal (324623074805398) Routine gynecological examination (V72.31) Active confirmed Major Problem Screening for malignant neoplasm of colon (704939123) Special screening for malignant neoplasms, colon (V76.51) Active confirmed Major Vital Signs Temperature 98.1 degrees Fahrenheit 04/21/2024 Blood pressure diastolic 80 mm Hg 04/21/2024 Height 62.25 in 04/21/2024 Blood pressure systolic 122 mm Hg 04/21/2024 Weight 160 lbs 04/21/2024 BMI 29.03 kg/m2 04/21/2024 Encounters Encounter Location Date Provider Diagnosis [address] [place] [address] 04/21/2024 Parisa Pagan Encounter for gynecological examination [...] Test Test Name Order Date MAMMOGRAM, SCREENING 12/30/2020 MAMMOGRAM, SCREENING 04/12/2022 MAMMOGRAM, SCREENING 04/15/2023 MAMMOGRAM, SCREENING 04/21/2024 MAMMOGRAM, SCREENING 08/25/2015 Urinalysis 12/30/2020 Urinalysis 12/23/2019 Urinalysis 06/23/2018 THIN PREP,HPV,TAYLOR IF HPV+ (>29YR)(SCRN) 03/22/2017 BONE DENSITY 03/22/2017 BONE DENSITY 06/23/2018 BONE DENSITY 04/12/2022 BONE DENSITY 04/15/2023 MM Digital Mammo Screening 04/15/2023 MM Digital Mammo Screening 04/21/2024 MM Digital Mammo Screening 12/30/2020 MM Digital Mammo Screening 04/12/2022 PELVIC ULTRASOUND W/TRANSVAGINAL 019 Next Appt Details Provider Name:Parisa ramirez, 04/26/2025 08:40:00 AM, [address], [address], [place], [address], Insurance Providers Payer Name Payer Address Payer Phone Subscriber Number Group Number Insured Name Patient Relationship to Insured Coverage Start Date Coverage End Date [facility] [address] [place] [address] [id number] RUPESH MOSER Spouse - patient is the spouse of the insured [employer] [address] [place] [address] [id number] LEONEL MOSER Self - patient is the [...]
== END ==
PROVIDERS: PCP Internal Medicine; Visit Provider Nurse Practitioner
DX: R11.2 Nausea with vomiting, unspecified (principal); K59.00 Constipation, unspecified; K21.9 Gastro-esophageal reflux disease without esophagitis; D12.6 Benign neoplasm of colon, unspecified; J90 Pleural effusion, not elsewhere classified; R79.89 Other specified abnormal findings of blood chemistry; R06.02 Shortness of breath; I10 Essential (primary) hypertension
CPT/HCPCS: 99214

== ENCOUNTER 2024-10-26 15:17 | Outpatient (REF) | payer MEDICARE, SELFPAY ==
--- NOTE | ~2024-10-26 | XR_ITS ---
EXAMINATION: XR CHEST 2 VIEWS HISTORY: J90 - Pleural effusion, not elsewhere classified COMPARISON: There are no prior studies available for comparison. FINDINGS: PA and lateral views of the chest are submitted. The lungs are expanded and clear. There is no pleural effusion, pneumothorax, or pulmonary vascular congestion. The heart is normal in size. There is degenerative disc disease of the spine. Status post reverse right shoulder arthroplasty. XR/XR chest 2V IMPRESSION: Clear lungs. Electronically signed by: Cody Briceno MD 10/26/2024 03:42 PM EDT
--- OUTSIDE RECORDS SUMMARY | 2024-10-26 16:54 | XMS_ITS | Patient Health Record ---
Author Organization [facility] Address [address] [place] [address] Care Team Providers Care Carbon Grinder Name Role Phone LESLIHari MARQUITA ECHEVARRIA Primary Care Provider Parisa Hurley Unavailable [phone] Allergies Allergen (clinical drug ingredient) Drug/Non Drug [...] day(s) 04/21/2024 Active Vitamin D3 1.25 MG (89021 UT) 1 capsule Orally Active oxyCODONE HCl 5 MG TAKE 1 TABLET EVERY 6 HOURS BY ORAL ROUTE NEEDED, FOR PAIN. Oral; Duration: 6 Days Active Venlafaxine HCl ER 150 MG 2 tablets with food Orally Once a day; Duration: 30 days Active Senokot Active lamoTRIgine 150 MG 1 tablet Orally 150 mg in am, 150 mg at night [facility] 11/02/2011 Active Omeprazole 40MG 1 ORAL daily; Durati on: -3 [facility] 11/02/2011 Active Cyclobenzaprine HCl 10 MG 1 [...] Status Risk Notes Problem Postmenopausal atrophic vaginitis (34517100) Postmenopausal atrophic vaginitis (N95.2) Active confirmed Problem Urinary incontinence (847692401) Unspecified urinary incontinence (R32) Active confirmed Problem Hyperlipidemia (50245460) Other and unspecified hyperlipidemia (272.4) Active confirmed Major Problem Obesity (312258611) Obesity, unspecified (278.00) Active confirmed Diag Problem Depressive disorder (91855780) Depressive disorder, not elsewhere classified (311) Active confirmed Major Problem Benign essential hypertension (5381601) Essential hypertension, benign (401.1) Active confirmed Major Problem Esophageal reflux (052103095) Esophageal reflux (530.81) Active confirmed Major Problem Cyst of ovary (57146338) Other and unspecified ovarian cyst (620.2) Active confirmed Major Problem Postmenopausal bleeding (79502826) Postmenopausal bleeding (627.1) Active confirmed Diag Problem Menopausal symptom (03187672) Symptomatic menopausal or female climacteric states (627.2) Active confirmed Major Problem Osteoarthritis (384006822) Osteoarthrosis, unspecified whether generalized or localized, unspecified site (715.90) Active confirmed Major Problem Muscle pain (41224972) Unspecified myalgia and myositis (729.1) Active confirmed Major Problem Gynecological examination normal (922298837662864) Routine gynecological examination (V72.31) Active confirmed Major Problem Screening for malignant neoplasm of colon (904069886) Special screening for malignant neoplasms, colon (V76.51) Active confirmed Major Vital Signs Temperature 98.1 degrees Fahrenheit 04/21/2024 Blood pressure diastolic 80 mm Hg 04/21/2024 Height 62.25 in 04/21/2024 Blood pressure systolic 122 mm Hg 04/21/2024 Weight 160 lbs 04/21/2024 BMI 29.03 kg/m2 04/21/2024 Encounters Encounter Location Date Provider Diagnosis [address] [place] [address] 04/21/2024 Parisa Pagan Encounter for gynecological examination [...] Provider Name:Parisa ramirez, 04/26/2025 08:40:00 AM, [address], [address], [place], [address], Insurance Providers Payer Name Payer Address Payer Phone Subscriber Number Group Number Insured Name Patient Relationship to Insured Coverage Start Date Coverage End Date [facility] [address] [place] [address] [id number] RUPESH MOSER Spouse - patient is the spouse of the insured [employer]ARE [address] [place] [address] [id number] LEONEL MOSER Self - patient is the [...]
== END 2024-10-26 15:18 | disposition home or self-care (01) ==
LOC: HO.XRAY 15:17
PROVIDERS: PCP Internal Medicine; Visit Provider Nurse Practitioner
DX: J90 Pleural effusion, not elsewhere classified (principal); R79.89 Other specified abnormal findings of blood chemistry; R06.02 Shortness of breath
CPT/HCPCS: 71046

== ENCOUNTER → 2024-10-26 15:23 | Outpatient (BNV) | payer MEDICARE, SELFPAY | PROVIDERS: PCP Internal Medicine; Visit Provider Radiology Diagnostic Radiology | DX: J90 Pleural effusion, not elsewhere classified (principal) | CPT/HCPCS: 71046 ==

== ENCOUNTER → 2024-11-05 08:26 | Outpatient (REF) | payer MEDICARE, SELFPAY ==
--- NOTE | ~2024-11-05 | NM_ITS ---
EXAMINATION: UT RADIONUCLIDE SOLID FOOD GASTRIC EMPTYING 4-HOUR STUDY CLINICAL INFORMATION: R11.2 - Nausea with vomiting, unspecified COMPARISON: None TECHNIQUE: A standard meal consisting of 4 oz of Egg Beaters brand tagged with 0.79 microcuries Tc-99m Sulfur Colloid, 8 oz water and 2 slices of toast with jelly was administered orally to the patient. Images were obtained using a dual head gamma camera in the anterior and posterior projections over of the stomach immediately post ingestion and at hourly intervals up to 4 hours post ingestion. The anterior and posterior counts at each time interval were averaged using the geometric mean and expressed as percentage of the immediate post ingestion counts. FINDINGS: There is good visualization of activity in the stomach immediately post ingestion. As the study progresses, there is good clearance of activity from the stomach and visualization of progressively increasing small bowel activity. By 180 minutes into study, there is almost no retention noted in the stomach and so the study was terminated early. Retention in the stomach at each time interval was: 1 hour 62% (normal 37%-90%) 2 hours 19% (normal 30%-60%) 3 hours 2% UT/UT gastric emptying study IMPRESSION: Normal gastric emptying study. For solid meal, rapid gastric emptying is less than 30% at 60 minutes. Delayed gastric emptying criteria is more than 60% remaining at 120 minutes or more than 10% at 240 minutes. The 4-hour value is the best discriminator of a normal or abnormal result). Gastric emptying study grading per JNMT Consensus Recommendations in 2008 (https://tech.snmjournals.org/content/36/1/44) Grade 1 (mild retention): 11-20% at 4h Grade 2 (moderate retention): 21-35% at 4h Grade 3 (severe retention): 36-50% at 4h Grade 4 (very severe retention): >50% retention at 4h Electronically signed by: Vance Pace MD 11/05/2024 02:24 PM EDT
--- OUTSIDE RECORDS SUMMARY | 2024-11-05 08:53 | XMS_ITS | Patient Health Record ---
Author Organization [facility] Address [address] [place] [address] Care Team Providers Care Oracle Fusion Middleware Developer Name Role Phone LESLIHari MARQUITA ECHEVARRIA Primary Care Provider Parisa Hurley Unavailable [phone] Allergies Allergen (clinical drug ingredient) Drug/Non Drug [...] day(s) 04/21/2024 Active Vitamin D3 1.25 MG (04520 UT) 1 capsule Orally Active oxyCODONE HCl 5 MG TAKE 1 TABLET EVERY 6 HOURS BY ORAL ROUTE NEEDED, FOR PAIN. Oral; Duration: 6 Days Active Venlafaxine HCl ER 150 MG 2 tablets with food Orally Once a day; Duration: 30 days Active Senokot Active lamoTRIgine 150 MG 1 tablet Orally 150 mg in am, 150 mg at night [facility] 11/02/2011 Active Omeprazole 40MG 1 ORAL daily; Durati on: -3 [facility] 11/02/2011 Active Cyclobenzaprine HCl 10 MG 1 [...] Status Risk Notes Problem Postmenopausal atrophic vaginitis (37255654) Postmenopausal atrophic vaginitis (N95.2) Active confirmed Problem Urinary incontinence (376067309) Unspecified urinary incontinence (R32) Active confirmed Problem Hyperlipidemia (27684454) Other and unspecified hyperlipidemia (272.4) Active confirmed Major Problem Obesity (560099090) Obesity, unspecified (278.00) Active confirmed Diag Problem Depressive disorder (31612450) Depressive disorder, not elsewhere classified (311) Active confirmed Major Problem Benign essential hypertension (5895779) Essential hypertension, benign (401.1) Active confirmed Major Problem Esophageal reflux (802136429) Esophageal reflux (530.81) Active confirmed Major Problem Cyst of ovary (29837172) Other and unspecified ovarian cyst (620.2) Active confirmed Major Problem Postmenopausal bleeding (05650173) Postmenopausal bleeding (627.1) Active confirmed Diag Problem Menopausal symptom (98069140) Symptomatic menopausal or female climacteric states (627.2) Active confirmed Major Problem Osteoarthritis (264272503) Osteoarthrosis, unspecified whether generalized or localized, unspecified site (715.90) Active confirmed Major Problem Muscle pain (75856783) Unspecified myalgia and myositis (729.1) Active confirmed Major Problem Gynecological examination normal (927545862645952) Routine gynecological examination (V72.31) Active confirmed Major Problem Screening for malignant neoplasm of colon (854842332) Special screening for malignant neoplasms, colon (V76.51) Active confirmed Major Vital Signs Temperature 98.1 degrees Fahrenheit 04/21/2024 Blood pressure diastolic 80 mm Hg 04/21/2024 Height 62.25 in 04/21/2024 Blood pressure systolic 122 mm Hg 04/21/2024 Weight 160 lbs 04/21/2024 BMI 29.03 kg/m2 04/21/2024 Encounters Encounter Location Date Provider Diagnosis [address] [place] [address] 04/21/2024 Parisa Pagan Encounter for gynecological examination [...] Provider Name:Parisa ramirez, 04/26/2025 08:40:00 AM, [address], [address], [place], [address], Insurance Providers Payer Name Payer Address Payer Phone Subscriber Number Group Number Insured Name Patient Relationship to Insured Coverage Start Date Coverage End Date [facility] [address] [place] [address] [id number] RUPESH MOESR Spouse - patient is the spouse of the insured [employer] [address] [place] [address] [id number] LEONEL MOSER Self - patient is the [...]
== END ==
LOC: HO.NUCMED 08:26
PROVIDERS: PCP Internal Medicine; Visit Provider Nurse Practitioner
DX: R11.2 Nausea with vomiting, unspecified (principal)
CPT/HCPCS: 78264; A9541

== ENCOUNTER → 2024-11-05 08:38 | Outpatient (BNV) | payer MEDICARE, SELFPAY | PROVIDERS: PCP Internal Medicine; Visit Provider Radiology Diagnostic Radiology | DX: R11.2 Nausea with vomiting, unspecified (principal) | CPT/HCPCS: 78264 ==

== ENCOUNTER 2024-11-12 12:15 | Outpatient (REF) | payer MEDICARE, SELFPAY ==
[2024-11-12 14:11] LABS: MANUAL DIFF FLAG NO
[2024-11-12 14:31] LABS: Hematocrit 32.5 % (37.0-47.0); Hemoglobin 10.3 g/dl (12.0-16.0); Imm Gran Abs Auto 0.02 X10*3/uL (0.00-0.03); Imm Gran Pct Auto 0.3 % (0.0-0.4); Lymphocytes Absolute Auto 1.4 X10*3/uL (1.2-4.9); Mean Corpuscular HGB Conc 31.7 g/dl (31.0-35.0); Mean Corpuscular Hemoglobin 32.2 pg (27.0-33.0); Mean Corpuscular Volume 101.6 fL (80.0-98.0); NRBC Abs Auto 0.000 X10*3/uL (0.0-0.012); NRBC Pct Auto 0.0 /100WBC (0.0-0.2); Platelet Count 195 X10*3/uL (160-400); Red Blood Count 3.20 X10*6/uL (4.20-5.50); White Blood Count 6.2 X10*3/uL (4.8-10.8)
[2024-11-12 15:15] LABS: Alanine Aminotransferase 21 U/L (0-31); Albumin Level 4.5 g/dL (3.5-5.0); Alkaline Phosphatase 90 U/L (39-117); Anion Gap 11 (12-20); Aspartate Amino Transferase 23 U/L (5-31); Blood Urea Nitrogen 12 mg/dL (9-16); Calcium 9.3 mg/dL (8.4-10.2); Carbon Dioxide 31 mmol/L (22-29); Chloride 103 mmol/L (96-108); Estimated Glomerular Filt Rate > 60; Potassium 4.3 mmol/L (3.3-5.1); Sodium 141 mmol/L (135-145); Total Protein 7.4 g/dL (6.5-8.0)
[2024-11-12 15:21] LABS: Ferritin 63 ng/mL (10-250)
[2024-11-12 15:31] LABS: Folate 15.0 ng/mL (> or = 4.0)
[2024-11-12 15:51] LABS: Vitamin B12 396 pg/mL (200-900)
[2024-11-17 22:14] LABS: Anti Nuclear Antibody Pattern Nuclear, Speckled; Anti Nuclear Antibody Screen POSITIVE (NEGATIVE); Anti Nuclear Antibody Titer 1:40 titer
== END 2024-11-12 12:16 | disposition home or self-care (01) ==
LOC: HO.LAB 12:15
PROVIDERS: PCP Internal Medicine; Visit Provider Nurse Practitioner
DX: K58.1 Irritable bowel syndrome with constipation (principal); R63.4 Abnormal weight loss; R53.83 Other fatigue; I10 Essential (primary) hypertension; J90 Pleural effusion, not elsewhere classified; R11.2 Nausea with vomiting, unspecified
CPT/HCPCS: 36415; 80053; 82306; 82607; 82728; 82746; 84443; 85025; 85652; 86038; 86039; 86140; 99212

== ENCOUNTER 2024-11-12 12:15 | Outpatient (AMB) | payer MEDICARE, SELFPAY ==
--- NOTE | 2024-11-12 12:17 | A.OFFVIS_ITS ---
Vital Signs 11/12/24 12:20 Height 5 ft 6 in Weight 160 lb BMI 25.8 BP 163/74 H Blood Pressure Location Lt brachial Position Sitting Pulse 73 Intake Visit Reasons: F/u gastric emptying, Xray results Intake Note: Analy presents in the office as a follow up GES anhd Xray results. CC: She states she has some pains in her intestines. She states that she has only constipation no diarrhea. 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 Extruder Operator Required: Yes Pelletising Extruder Operator Name: [id number] Mariana Allergies ibuprofen Allergy (Severe, Verified 11/12/24 12:21) stomach bleed HPI HPI F/u gastric emptying, Xray results: Details: Assessment & Plan (1) Nausea and vomiting: Code(s): R11.2 - Nausea with vomiting, unspecified Category: Medical (2) Constipation: Code(s): K59.00 - Constipation, unspecified Category: Medical (3) GERD (gastroesophageal reflux disease): Code(s): K21.9 - Gastro-esophageal reflux disease without esophagitis Category: Medical (4) Tubular adenoma of colon: Comment: 2021 scope at [facility] Code(s): D12.6 - Benign neoplasm of colon, unspecified Category: Medical (5) Pleural effusion: Comment: 08/2024 [facility] CXR and ER visit with BNP > 4000, but neg stress test and echo Code(s): J90 - Pleural effusion, not elsewhere classified Category: Medical (6) Elevated brain natriuretic peptide (BNP) level: Code(s): R79.89 - Other specified abnormal findings of blood chemistry Category: Medical (7) Shortness of breath: Code(s): R06.02 - Shortness of breath Category: Medical (8) Hypertension: Code(s): I10 - Essential (primary) hypertension Category: Medical Plan History of Present Illness - The patient is a 74-year-old female presenting with longstanding chronic constipation and nausea. She previously used bisacodyl effectively for two to three weeks but then it seemed to stop working and she reverted to using MiraLax with some relief. However, again she needs to drink 3 times the usual dose to produce results. Even with her MiraLax in the bisacodyl who stools are very hard. There was no effective relief achieved for nausea with metoclopramide. Additionally, she has noted respiratory challenges, including past bilateral pleural effusions treated with diuretics, possibly furosemide, with symptoms reemerging upon cessation. A significant breathing challenge and yellow expectorations are present. She has been seen in the past by [facility] Cardiology with a seemingly negative workup. The cardiology note at [facility] confirms that she has, at least in their eyes, known chronic hypertensive disease and they thought that she was continuing on nifedipine for this. However the medication was never renewed and the patient has been out of this medication for several months. She takes her blood pressure at home and Reports show high blood pressure reading consistently between 150 and 180 mmHg. The patient confirms having undergone an upper endoscopy in the past at [facility]. The cardiac issue was suspected to be treated via antihypertensive medications. Dietary adjustments were noted, such as avoidance of dairy due to gastrointestinal sensitivities. Nutrition The patient has had difficulties in consuming certain foods due to nausea and abdominal pain. Though she has not been consuming yogurt or milk, the use of boiled water for cereal has been reported. Despite the dietary adjustments, the patient continues to experience digestive issues, particularly associated with boiled apples, exacerbating her constipation. It's noted that butter, dairy, yogurt and apples aggravate symptoms, with those related to fattiness mentioned. There is no stated use of vitamins or other supplements. Review of Systems - Gastrointestinal: Reports long-standing constipation; nausea persists. Denies any daily regular bowel movements. - Respiratory: Reports recurrent shortness of breath; frequent expectoration, yellow in color. - Cardiac: Denies history of arrhythmia, but experiences persistent hypertension . - Neurological: Reports fatigue. - Genitourinary: Denies significant urinary frequency or dysfunction, though mentions increased urination with past diuretic use. - Allergies: Suspected allergic rhinitis with no effective current treatment. Results - Previous echocardiogram indicated normal cardiac function. - No recent upper endoscopy or colonoscopy in past three years. Plan Management of chronic constipation includes continuing MiraLax for its known efficacy when combined with bisacodyl, and increasing the metoclopramide to 10 mg 4 times a day. These 3 together all have synergistic effects on GI motility. Hypertension is to be managed with hydrochlorothiazide serving a dual purpose of controlling fluid accumulation and high blood pressure. I want to get away from nifedipine because it can actually cause pleural effusions as a side effect. An ongoing assessment for pleural effusion using a chest X-ray and potential lateral CAT scan are planned, with expectations of specialist referral to a clothes model for wheezing and respiratory evaluations. For now I will titrate her hydrochlorothiazide to affect her side effect until she can see her primary care provider again. Patient was informed and verbally consented to the use of an ambient scribe for clinic note documentation during this visit. Patient Instructions - Continue taking MiraLax to help manage constipation, combined with the prescribed bisacodyl and metoclopramide 10 mg 4 times a day as directed. - Avoid fatty and fried foods and monitor dairy product consumption if it aggravates symptoms. - Take the hydrochlorothiazide in the morning; monitor blood pressure regularly. - Report any abnormal chest or abdominal pain to us promptly. - Be sure to go to the gastric emptying study 9 4, do the chest x-ray as walk-in at your convenience, and we will be calling you to set up a chest CAT scan and a the clothes model's office will call you for an appointment. - Contact your edge burnisher regarding medications and follow-up. Orders: Orders CT chest w IV con Today J90 - Pleural effusion, not elsewhere classified, R06.02 - Shortness of breath, R79.89 - Other specified abnormal findings of blood chemistry XR chest 2V Today J90 - Pleural effusion, not elsewhere classified, R06.02 - Shortness of breath, R79.89 - Other specified abnormal findings of blood chemistry Referrals Pulmonology Referral J90 - Pleural effusion, not elsewhere classified, R06.02 - Shortness of breath Medications: New polyethylene glycol 3350 (Miralax) 17 grams PO DAILY 510 grams 6RF 30 days hydrochlorothiazide 25 mg PO DAILY 30 tabs 3RF I10 - Essential (primary) hypertension metoclopramide HCl (Reglan) 10 mg PO QIDACHS 120 tabs 6RF Changed From bisacodyl (Dulcolax (bisacodyl)) 10 mg (2 x 5 mg) PO BEDTIME 2 days 4 tabs 0RF To bisacodyl (Dulcolax (bisacodyl)) 10 mg (2 x 5 mg) PO BEDTIME 60 tabs 6RF 30 days Discontinued metoclopramide HCl (Reglan) Discontinued Reason: Doctor's Order 5 mg PO .tidac 90 tabs 3RF R11.2 - Nausea with vomiting, unspecified Patient Instructions: ?Analy Rahman -Bisacodyl 2 tablets at bedtime -Miralax 2-3 times a day per your judgement -metoclopramide 10mg 4x a day -Omeprazole 40mg daily -NEW: hydrochlorothiazide for high blood pressure, take daily -TESTS; chest xray and chest CT -I will see you after the gastric emptying study GASTRIC EMPTYING STUDY 11/05/2024 FINDINGS: There is good visualization of activity in the stomach immediately post ingestion. As the study progresses, there is good clearance of activity from the stomach and visualization of progressively increasing small bowel activity. By 180 minutes into study, there is almost no retention noted in the stomach and so the study was terminated early. Retention in the stomach at each time interval was: 1 hour 62% (normal 37%-90%) 2 hours 19% (normal 30%-60%) 3 hours 2% NM/NM gastric emptying study IMPRESSION: Normal gastric emptying study. CT CHEST CXR 10/26/2024 FINDINGS: PA and lateral views of the chest are submitted. The lungs are expanded and clear. There is no pleural effusion, pneumothorax, or pulmonary vascular congestion. The heart is normal in size. There is degenerative disc disease of the spine. Status post reverse right shoulder arthroplasty. XR/XR chest 2V IMPRESSION: Clear lungs. TODAY'S VISIT LATVIAN #[id number] [facility] Medical History GERD (gastroesophageal reflux disease) Constipation Surgical History H/O esophagogastroduodenoscopy H/O colonoscopy H/O bilateral oophorectomy H/O right wrist surgery History of knee replacement Family History Father Hypertension Heart disease Mother Breast CA Sister Stomach cancer Social History Alcohol intake: never Patient Tobacco Use Status: Never used Tobacco Review of Systems Const Reports fatigue, Denies fever(s), Denies night sweats, Reports poor appetite, Reports weight gain and Denies weight loss Eyes Details: glasses Reports requires corrective lenses ENT Details: Burning tongue Reports Normal hearing present, Denies dental pain, Denies dysphagia, Denies hearing loss, Denies mouth pain, Denies odynophagia, Denies throat swelling, Denies tongue swelling and Reports other (Dentition adequate) Card Reports no additional complaints Resp Reports no additional complaints GI Details: Reports abdominal pain (Really more borborygmus), Denies melena, Denies bloating, Denies hematochezia, Reports constipation, Denies GI cramping, Denies dysphagia, Denies excessive flatus, Denies early satiety, Reports heartburn, Denies diarrhea, Denies nausea, Denies odynophagia, Denies vomiting and Denies hematemesis Reports nocturia Skin/Breast Denies pruritus, Denies lesions, Denies rash and Denies jaundice Neuro Reports Normal hearing present and Denies Abnormal speech present Endo Reports fatigue Aller/Immun Denies throat swelling and Denies tongue swelling Physical Exam Vital Signs: Last Vital Signs Pulse 73 11/12/24 12:20 BP 163/74 H 11/12/24 12:20 BMI result Body Mass Index 25.8 Const General: cooperative, no acute distress, well developed and well groomed Nutritional Appearance: well nourished, obese and overweight Orientation/consciousness: oriented to person, oriented to place and oriented to time Limitations: No language barrier, ambulation with cane, ambulation with walker and wheelchair HEENT Head: Yes normocephalic and Yes atraumatic Eyes General: appearance normal, both eyes and all related structures Pupils: Equal, round and reactive pupils present Neck Neck: Yes normal visual inspection and Yes no lymphadenopathy Thyroid: Thyroid normal Resp Effort & Inspection: normal respiratory effort and able to speak in complete sentences Auscultation: clear to auscultation bilaterally Cardio Rate: regular rate Rhythm: regular rhythm Heart sounds: Normal, physiologic split S2 sound present Peripheral pulses: radial pulses present and posterior tibial pulses present GI Inspection: No distended and No Abdominal panniculus present Palpation (GI): Soft to palpation, nontender, no guarding, not rigid, No hepatosplenomegaly present and Hepatosplenomegaly present Percussion: Yes normal to percussion Auscultation: normal bowel sounds Rectal Exam - Female: deferred Skin General skin exam: no rashes or lesions noted, turgor normal, skin not dry, no jaundice, No spider nevi and no striae Rashes: no rashes Nails: normal Neuro General: oriented to person, oriented to place and oriented to time Cranial nerves: Yes Equal, round and reactive pupils present and Yes Normal hearing present Speech: No Abnormal speech present Extrem General: Yes normal to inspection, No clubbing, No cyanosis and No edema Psych Thought process: Normal thought process present and not confabulating Thought content: Normal thought content present Insight: Good insight present (Psych) Judgement: Good judgement present (Psych) Results Reviewed Results Reviewed: GASTRIC EMPTYING STUDY 11/05/2024 FINDINGS: There is good visualization of activity in the stomach immediately post ingestion. As the study progresses, there is good clearance of activity from the stomach and visualization of progressively increasing small bowel activity. By 180 minutes into study, there is almost no retention noted in the stomach and so the study was terminated early. Retention in the stomach at each time interval was: 1 hour 62% (normal 37%-90%) 2 hours 19% (normal 30%-60%) 3 hours 2% NM/NM gastric emptying study IMPRESSION: Normal gastric emptying study. CXR 10/26/2024 FINDINGS: PA and lateral views of the chest are submitted. The lungs are expanded and clear. There is no pleural effusion, pneumothorax, or pulmonary vascular congestion. The heart is normal in size. There is degenerative disc disease of the spine. Status post reverse right shoulder arthroplasty. XR/XR chest 2V IMPRESSION: Clear lungs. Assessment & Plan Assessment & Plan (1) Weight loss, abnormal: Code(s): R63.4 - Abnormal weight loss Category: Medical (2) GERD (gastroesophageal reflux disease): Code(s): K21.9 - Gastro-esophageal reflux disease without esophagitis Category: Medical (3) Nausea and vomiting: Code(s): R11.2 - Nausea with vomiting, unspecified Category: Medical (4) Constipation: Code(s): K59.00 - Constipation, unspecified Category: Medical (5) Pleural effusion: Comment: 08/2024 [facility] CXR and ER visit with BNP > 4000, but neg stress test and echo Code(s): J90 - Pleural effusion, not elsewhere classified Category: Medical (6) Oral maggy: Comment: ? has 2 year burning tongue Code(s): B37.0 - Candidal stomatitis Category: Medical (7) Fatigue: Code(s): R53.83 - Other fatigue Category: Medical (8) IBS (irritable bowel syndrome): Code(s): K58.9 - Irritable bowel syndrome, unspecified Category: Medical Plan LATVIAN #[id number] She is here today with her who is supportive She is utilizing the bisacodyl and with it she does move her bowels every day. However, she still will have to hard bowel movements followed by 1 that is mostly formed with some loose stools behind it. It is also causing her cramping. I think this is because we still having incomplete activation of the bowels so I would like her to increase it to 3 tablets a day. She is utilizing the metoclopramide and although she is unclear about its affect she certainly is not having any side effects. It seems that she is eating a wider range of foods and only avoiding fatty foods now and she has gained about 10 lb since the last visit so this is encouraging. She is also taking the hydrochlorothiazide and her blood pressure at home has been better controlled with a systolic ranging around 130. It is slightly higher today which she attributes to white coat hypertension. This also has not greatly increased her overactive bladder problems so for now we will stay at this dose since she has a long documented history of hypertensive heart disease and was not currently on anything but nifedipine. I was reluctant to restart nifedipine because sometimes this can cause pleural effusions. She did have an unexplained put pull effusion with an elevated BNP at [facility] fairly recently. She has not yet heard from pulmonology. We review the chest x-ray and appears to be clear at this time. She says her shortness of breath has resolved but she is experiencing profound fatigue that limits her ability to walk. This is not new in his not a reaction to the medications per her report. I want her to continue the Reglan for now. She is uncertain how much it is helping and she is still complaining of what sounds like reflux with burning in the epigastric area. She does continue on her omeprazole as well. Because of the unexplained fatigue I want to get a repeat of her B12 levels a vitamin-D level a thyroid, and some other basic labs. She has a unexplained elevated MCV. She denies significant alcohol intake. She has not know of any family history of autoimmune diseases such as rheumatoid arthritis or lupus. She has a complaint that is new to me of burning in her tongue. However when I ask her to clarify she says this has been going on for over 2 years. It is always there but is greatly worsened by acid foods. I am uncertain if this may be Maggy I will give her a nystatin swish and swallow for now and see if this has any impact. Examination of the tongue is not abnormal. She asks if she should have a colonoscopy and I read the [facility] notes and she last had 1 in 2021 and since there was only 1 TA they recommended a 5 year repeat. So at this time I do not think this procedure would be a high priority. The gastric emptying study was also normal. She has not yet heard about the chest CT. Return office visit in 3 weeks. Orders: Orders Vitamin B12 and Folate Today B37.0 - Candidal stomatitis Vitamin D 25-OH Total Today R53.83 - Other fatigue, R63.4 - Abnormal weight loss Complete Blood Count Auto Diff Today R53.83 - Other fatigue, R63.4 - Abnormal weight loss Pancreatic Elastase-1 Today K58.9 - Irritable bowel syndrome, unspecified TSH reflex Free T4 Today B37.0 - Candidal stomatitis Comprehensive Met. Panel Today R53.83 - Other fatigue, R63.4 - Abnormal weight loss Erythrocyte Sedimentation Rate Today R53.83 - Other fatigue, R63.4 - Abnormal weight loss C Reactive Protein Today R53.83 - Other fatigue, R63.4 - Abnormal weight loss KEEGAN Reflex Titer and Pattern Today R53.83 - Other fatigue, R63.4 - Abnormal weight loss Ferritin Today R53.83 - Other fatigue, R63.4 - Abnormal weight loss Medications: New nystatin swish and swallow 10 mL PO BID 473 mL 0RF B37.0 - Candidal stomatitis Coding Level of Care Code Est Pt Level 4 (69023) Diagnoses Weight loss, abnormal R63.4 GERD (gastroesophageal reflux disease) K21.9 Nausea and vomiting R11.2 Constipation K59.00 Pleural effusion J90 Oral maggy B37.0 Fatigue R53.83 IBS (irritable bowel syndrome) K58.9 Time Spent (min) 40
[2024-11-12 12:20] VITALS: BP 163/74; PULSE 73; BMI 25.8
--- OUTSIDE RECORDS SUMMARY | 2024-11-12 16:29 | XMS_ITS | Patient Health Record ---
Author Organization [facility] Address [address] [place] [address] Care Team Providers Care Military Technology Specialist Name Role Phone LESLIHari MARQUITA ECHEVARRIA Primary Care Provider Parisa Hurley Unavailable [phone] Allergies Allergen (clinical drug ingredient) Drug/Non Drug [...] day(s) 04/21/2024 Active Vitamin D3 1.25 MG (48600 UT) 1 capsule Orally Active oxyCODONE HCl 5 MG TAKE 1 TABLET EVERY 6 HOURS BY ORAL ROUTE NEEDED, FOR PAIN. Oral; Duration: 6 Days Active Venlafaxine HCl ER 150 MG 2 tablets with food Orally Once a day; Duration: 30 days Active Senokot Active lamoTRIgine 150 MG 1 tablet Orally 150 mg in am, 150 mg at night [facility] 11/02/2011 Active Omeprazole 40MG 1 ORAL daily; Durati on: -3 [facility] 11/02/2011 Active Cyclobenzaprine HCl 10 MG 1 [...] Status Risk Notes Problem Postmenopausal atrophic vaginitis (35478124) Postmenopausal atrophic vaginitis (N95.2) Active confirmed Problem Urinary incontinence (791196993) Unspecified urinary incontinence (R32) Active confirmed Problem Hyperlipidemia (77789777) Other and unspecified hyperlipidemia (272.4) Active confirmed Major Problem Obesity (757916768) Obesity, unspecified (278.00) Active confirmed Diag Problem Depressive disorder (76405512) Depressive disorder, not elsewhere classified (311) Active confirmed Major Problem Benign essential hypertension (8936687) Essential hypertension, benign (401.1) Active confirmed Major Problem Esophageal reflux (711724852) Esophageal reflux (530.81) Active confirmed Major Problem Cyst of ovary (54181240) Other and unspecified ovarian cyst (620.2) Active confirmed Major Problem Postmenopausal bleeding (08699234) Postmenopausal bleeding (627.1) Active confirmed Diag Problem Menopausal symptom (22912884) Symptomatic menopausal or female climacteric states (627.2) Active confirmed Major Problem Osteoarthritis (661661955) Osteoarthrosis, unspecified whether generalized or localized, unspecified site (715.90) Active confirmed Major Problem Muscle pain (83058242) Unspecified myalgia and myositis (729.1) Active confirmed Major Problem Gynecological examination normal (389137446691648) Routine gynecological examination (V72.31) Active confirmed Major Problem Screening for malignant neoplasm of colon (072400299) Special screening for malignant neoplasms, colon (V76.51) Active confirmed Major Vital Signs Temperature 98.1 degrees Fahrenheit 04/21/2024 Blood pressure diastolic 80 mm Hg 04/21/2024 Height 62.25 in 04/21/2024 Blood pressure systolic 122 mm Hg 04/21/2024 Weight 160 lbs 04/21/2024 BMI 29.03 kg/m2 04/21/2024 Encounters Encounter Location Date Provider Diagnosis [address] [place] [address] 04/21/2024 Parisa Pagan Encounter for gynecological examination [...] Provider Name:Parisa ramirez, 04/26/2025 08:40:00 AM, [address], [address], [place], [address], Insurance Providers Payer Name Payer Address Payer Phone Subscriber Number Group Number Insured Name Patient Relationship to Insured Coverage Start Date Coverage End Date [facility] [address] [place] [address] [id number] RUPESH MOSER Spouse - patient is the spouse of the insured [employer] [address] [place] [address] [id number] LEONEL MOSER Self - patient is the [...]
== END 2024-11-12 14:09 | disposition home or self-care (01) ==
LOC: HO.HGI 12:16
PROVIDERS: PCP Internal Medicine; Visit Provider Nurse Practitioner
DX: R63.4 Abnormal weight loss (principal); K21.9 Gastro-esophageal reflux disease without esophagitis; R11.2 Nausea with vomiting, unspecified; K59.00 Constipation, unspecified; J90 Pleural effusion, not elsewhere classified; B37.0 Candidal stomatitis; R53.83 Other fatigue; K58.9 Irritable bowel syndrome, unspecified
CPT/HCPCS: 99214

== ENCOUNTER 2024-11-21 11:08 | Outpatient (REF) | payer MEDICARE, SELFPAY ==
--- OUTSIDE RECORDS SUMMARY | 2024-11-21 11:11 | XMS_ITS | Patient Health Record ---
Author Organization [facility] Address [address] [place] [address] Care Team Providers Care Service Desk Agent Name Role Phone LESLIHari MARQUITA ECHEVARRIA Primary Care Provider Parisa Hurley Unavailable [phone] Allergies Allergen (clinical drug ingredient) Drug/Non Drug [...] day(s) 04/21/2024 Active Vitamin D3 1.25 MG (97304 UT) 1 capsule Orally Active oxyCODONE HCl 5 MG TAKE 1 TABLET EVERY 6 HOURS BY ORAL ROUTE NEEDED, FOR PAIN. Oral; Duration: 6 Days Active Venlafaxine HCl ER 150 MG 2 tablets with food Orally Once a day; Duration: 30 days Active Senokot Active lamoTRIgine 150 MG 1 tablet Orally 150 mg in am, 150 mg at night [facility] 11/02/2011 Active Omeprazole 40MG 1 ORAL daily; Durati on: -3 [facility] 11/02/2011 Active Cyclobenzaprine HCl 10 [...] Status Risk Notes Problem Postmenopausal atrophic vaginitis (30286378) Postmenopausal atrophic vaginitis (N95.2) Active confirmed Problem Urinary incontinence (632438692) Unspecified urinary incontinence (R32) Active confirmed Problem Hyperlipidemia (73420898) Other and unspecified hyperlipidemia (272.4) Active confirmed Major Problem Obesity (412718409) Obesity, unspecified (278.00) Active confirmed Diag Problem Depressive disorder (64907175) Depressive disorder, not elsewhere classified (311) Active confirmed Major Problem Benign essential hypertension (0353817) Essential hypertension, benign (401.1) Active confirmed Major Problem Esophageal reflux (111970226) Esophageal reflux (530.81) Active confirmed Major Problem Cyst of ovary (85542112) Other and unspecified ovarian cyst (620.2) Active confirmed Major Problem Postmenopausal bleeding (96573185) Postmenopausal bleeding (627.1) Active confirmed Diag Problem Menopausal symptom (07105344) Symptomatic menopausal or female climacteric states (627.2) Active confirmed Major Problem Osteoarthritis (569975372) Osteoarthrosis, unspecified whether generalized or localized, unspecified site (715.90) Active confirmed Major Problem Muscle pain (88939677) Unspecified myalgia and myositis (729.1) Active confirmed Major Problem Gynecological examination normal (439648741883813) Routine gynecological examination (V72.31) Active confirmed Major Problem Screening for malignant neoplasm of colon (617579464) Special screening for malignant neoplasms, colon (V76.51) Active confirmed Major Vital Signs Temperature 98.1 degrees Fahrenheit 04/21/2024 Blood pressure diastolic 80 mm Hg 04/21/2024 Height 62.25 in 04/21/2024 Blood pressure systolic 122 mm Hg 04/21/2024 Weight 160 lbs 04/21/2024 BMI 29.03 kg/m2 04/21/2024 Encounters Encounter Location Date Provider Diagnosis [address] [place] [address] 04/21/2024 Parisa Pagan Encounter for gynecological examination [...] Provider Name:Parisa ramirez, 04/26/2025 08:40:00 AM, [address], [address], [place], [address], Insurance Providers Payer Name Payer Address Payer Phone Subscriber Number Group Number Insured Name Patient Relationship to Insured Coverage Start Date Coverage End Date [facility] [address] [place] [address] [id number] RUPESH MOSER Spouse - patient is the spouse of the insured [employer] [address] [place] [address] [id number] LEONEL MOSER Self - patient is the [...]
== END 2024-11-21 11:09 | disposition home or self-care (01) ==
LOC: HO.LNP 11:08
PROVIDERS: Visit Provider Nurse Practitioner
DX: K58.9 Irritable bowel syndrome, unspecified (principal)
CPT/HCPCS: 82656

== ENCOUNTER 2024-12-04 14:47 | Outpatient (AMB) | payer MEDICARE, SELFPAY ==
--- OUTSIDE RECORDS SUMMARY | 2024-12-04 14:50 | XMS_ITS | Patient Health Record ---
Author Organization [facility] Address [address] [place] [address] Care Team Providers Care Kiln Remover Name Role Phone LESLIHari MARQUITA ECHEVARRIA Primary Care Provider Parisa Hurley Unavailable [phone] Allergies Allergen (clinical drug ingredient) Drug/Non Drug [...] day(s) 04/21/2024 Active Vitamin D3 1.25 MG (89586 UT) 1 capsule Orally Active oxyCODONE HCl 5 MG TAKE 1 TABLET EVERY 6 HOURS BY ORAL ROUTE NEEDED, FOR PAIN. Oral; Duration: 6 Days Active Venlafaxine HCl ER 150 MG 2 tablets with food Orally Once a day; Duration: 30 days Active Senokot Active lamoTRIgine 150 MG 1 tablet Orally 150 mg in am, 150 mg at night [facility] 11/02/2011 Active Omeprazole 40MG 1 ORAL daily; Durati on: -3 [facility] 11/02/2011 Active Cyclobenzaprine HCl 10 MG [...] Status Risk Notes Problem Postmenopausal atrophic vaginitis (99603394) Postmenopausal atrophic vaginitis (N95.2) Active confirmed Problem Urinary incontinence (197298468) Unspecified urinary incontinence (R32) Active confirmed Problem Hyperlipidemia (11733664) Other and unspecified hyperlipidemia (272.4) Active confirmed Major Problem Obesity (433700367) Obesity, unspecified (278.00) Active confirmed Diag Problem Depressive disorder (13408280) Depressive disorder, not elsewhere classified (311) Active confirmed Major Problem Benign essential hypertension (6011883) Essential hypertension, benign (401.1) Active confirmed Major Problem Esophageal reflux (576028235) Esophageal reflux (530.81) Active confirmed Major Problem Cyst of ovary (71483100) Other and unspecified ovarian cyst (620.2) Active confirmed Major Problem Postmenopausal bleeding (84541513) Postmenopausal bleeding (627.1) Active confirmed Diag Problem Menopausal symptom (41648655) Symptomatic menopausal or female climacteric states (627.2) Active confirmed Major Problem Osteoarthritis (665859168) Osteoarthrosis, unspecified whether generalized or localized, unspecified site (715.90) Active confirmed Major Problem Muscle pain (78716000) Unspecified myalgia and myositis (729.1) Active confirmed Major Problem Gynecological examination normal (024653210233107) Routine gynecological examination (V72.31) Active confirmed Major Problem Screening for malignant neoplasm of colon (513108469) Special screening for malignant neoplasms, colon (V76.51) Active confirmed Major Vital Signs Temperature 98.1 degrees Fahrenheit 04/21/2024 Blood pressure diastolic 80 mm Hg 04/21/2024 Height 62.25 in 04/21/2024 Blood pressure systolic 122 mm Hg 04/21/2024 Weight 160 lbs 04/21/2024 BMI 29.03 kg/m2 04/21/2024 Encounters Encounter Location Date Provider Diagnosis [address] [place] [address] 04/21/2024 Parisa Pagan Encounter for gynecological examination [...] Provider Name:Parisa ramirez, 04/26/2025 08:40:00 AM, [address], [address], [place], [address], Insurance Providers Payer Name Payer Address Payer Phone Subscriber Number Group Number Insured Name Patient Relationship to Insured Coverage Start Date Coverage End Date [facility] [address] [place] [address] [id number] RUPESH MOSER Spouse - patient is the spouse of the insured [employer] [address] [place] [address] [id number] LEONEL MOSER Self - patient is the [...]
--- NOTE | 2024-12-04 14:57 | MHC.OFFVIS ---
Vital Signs 12/04/24 15:01 Height 5 ft 6 in Weight 167 lb 15.876 oz BMI 27.1 BP 142/65 H Blood Pressure Location Lt brachial Position Sitting Pulse 71 Intake Visit Reasons: F/u gastric emptying Intake Note: Patient in office today in follow up of labs. CC: Patient reports that she is having BMs everyday, abd pain, and occasional vomiting. Dynamics Ax Solution Architect Required: Yes Dynamics Ax Solution Architect Language: Vietnamese Dynamics Ax Solution Architect Name: Toshia [email or web address] Accompanied by: Spouse Allergies ibuprofen Allergy (Severe, Verified 12/04/24 15:17) stomach bleed HPI HPI F/u gastric emptying: Details: Assessment & Plan (1) Weight loss, abnormal: Code(s): R63.4 - Abnormal weight loss Category: Medical (2) GERD (gastroesophageal reflux disease): Code(s): K21.9 - Gastro-esophageal reflux disease without esophagitis Category: Medical (3) Nausea and vomiting: Code(s): R11.2 - Nausea with vomiting, unspecified Category: Medical (4) Constipation: Code(s): K59.00 - Constipation, unspecified Category: Medical (5) Pleural effusion: Comment: 08/2024 [facility] CXR and ER visit with BNP > 4000, but neg stress test and echo Code(s): J90 - Pleural effusion, not elsewhere classified Category: Medical (6) Oral maggy: Comment: ? has 2 year burning tongue Code(s): B37.0 - Candidal stomatitis Category: Medical (7) Fatigue: Code(s): R53.83 - Other fatigue Category: Medical (8) IBS (irritable bowel syndrome): Code(s): K58.9 - Irritable bowel syndrome, unspecified Category: Medical Plan PANAMANIAN #[id number] She is here today with her who is supportive She is utilizing the bisacodyl and with it she does move her bowels every day. However, she still will have to hard bowel movements followed by 1 that is mostly formed with some loose stools behind it. It is also causing her cramping. I think this is because we still having incomplete activation of the bowels so I would like her to increase it to 3 tablets a day. She is utilizing the metoclopramide and although she is unclear about its affect she certainly is not having any side effects. It seems that she is eating a wider range of foods and only avoiding fatty foods now and she has gained about 10 lb since the last visit so this is encouraging. She is also taking the hydrochlorothiazide and her blood pressure at home has been better controlled with a systolic ranging around 130. It is slightly higher today which she attributes to white coat hypertension. This also has not greatly increased her overactive bladder problems so for now we will stay at this dose since she has a long documented history of hypertensive heart disease and was not currently on anything but nifedipine. I was reluctant to restart nifedipine because sometimes this can cause pleural effusions. She did have an unexplained put pull effusion with an elevated BNP at [facility] fairly recently. She has not yet heard from pulmonology. We review the chest x-ray and appears to be clear at this time. She says her shortness of breath has resolved but she is experiencing profound fatigue that limits her ability to walk. This is not new in his not a reaction to the medications per her report. I want her to continue the Reglan for now. She is uncertain how much it is helping and she is still complaining of what sounds like reflux with burning in the epigastric area. She does continue on her omeprazole as well. Because of the unexplained fatigue I want to get a repeat of her B12 levels a vitamin-D level a thyroid, and some other basic labs. She has a unexplained elevated MCV. She denies significant alcohol intake. She has not know of any family history of autoimmune diseases such as rheumatoid arthritis or lupus. She has a complaint that is new to me of burning in her tongue. However when I ask her to clarify she says this has been going on for over 2 years. It is always there but is greatly worsened by acid foods. I am uncertain if this may be Maggy I will give her a nystatin swish and swallow for now and see if this has any impact. Examination of the tongue is not abnormal. She asks if she should have a colonoscopy and I read the [facility] notes and she last had 1 in 2021 and since there was only 1 TA they recommended a 5 year repeat. So at this time I do not think this procedure would be a high priority. The gastric emptying study was also normal. She has not yet heard about the chest CT. Return office visit in 3 weeks. Orders: Orders Vitamin B12 and Folate Today B37.0 - Candidal stomatitis Vitamin D 25-OH Total Today R53.83 - Other fatigue, R63.4 - Abnormal weight loss Complete Blood Count Auto Diff Today R53.83 - Other fatigue, R63.4 - Abnormal weight loss Pancreatic Elastase-1 Today K58.9 - Irritable bowel syndrome, unspecified TSH reflex Free T4 Today B37.0 - Candidal stomatitis Comprehensive Met. Panel Today R53.83 - Other fatigue, R63.4 - Abnormal weight loss Erythrocyte Sedimentation Rate Today R53.83 - Other fatigue, R63.4 - Abnormal weight loss C Reactive Protein Today R53.83 - Other fatigue, R63.4 - Abnormal weight loss KEEGAN Reflex Titer and Pattern Today R53.83 - Other fatigue, R63.4 - Abnormal weight loss Ferritin Today R53.83 - Other fatigue, R63.4 - Abnormal weight loss Medications: New nystatin swish and swallow 10 mL PO BID 473 mL 0RF B37.0 - Candidal stomatitis LABS Laboratory Tests 12/02/23 11/12/24 11/21/24 15:28 13:59 08:45 WBC 6.2 Hgb 10.3 L Hct 32.5 L MCV 101.6 H MCH 32.2 Plt Count 195 ESR 44 H 18 Estimated GFR > 60 Ferritin 63 Total Bilirubin 0.3 AST 23 ALT 21 Alkaline Phosphatase 90 C-Reactive Protein 0.14 Vitamin B12 396 25-OH Vitamin D Total 69.7 Folate 15.0 TSH 1.26 Stool Pancreat Elastase >800 KEEGAN Screen POSITIVE A KEEGAN Titer 1:40 H KEEGAN Pattern Nuclear, Speckled A GES 11/05/2024 FINDINGS: There is good visualization of activity in the stomach immediately post ingestion. As the study progresses, there is good clearance of activity from the stomach and visualization of progressively increasing small bowel activity. By 180 minutes into study, there is almost no retention noted in the stomach and so the study was terminated early. Retention in the stomach at each time interval was: 1 hour 62% (normal 37%-90%) 2 hours 19% (normal 30%-60%) 3 hours 2% NM/NM gastric emptying study IMPRESSION: Normal gastric emptying study. TODAYS VISIT [facility] Medical History GERD (gastroesophageal reflux disease) Constipation Surgical History H/O esophagogastroduodenoscopy H/O colonoscopy H/O bilateral oophorectomy H/O right wrist surgery History of knee replacement Family History Father Hypertension Heart disease Mother Breast CA Sister Stomach cancer Social History Alcohol intake: never Patient Tobacco Use Status: Never used Tobacco Review of Systems Const Denies fatigue, Denies fever(s), Denies night sweats, Denies poor appetite, Reports weight gain and Denies weight loss Eyes Details: glasses Reports requires corrective lenses ENT Reports Normal hearing present, Denies dental pain, Denies dysphagia, Denies hearing loss, Denies mouth pain, Denies odynophagia, Denies throat swelling, Denies tongue swelling and Reports other (Dentition adequate) Card Reports no additional complaints Resp Reports no additional complaints GI Details: Reports abdominal pain, Denies melena, Reports bloating, Denies hematochezia, Reports constipation, Denies GI cramping, Denies dysphagia, Denies excessive flatus, Denies early satiety, Reports heartburn, Denies diarrhea, Denies nausea, Denies odynophagia, Denies vomiting and Denies hematemesis Skin/Breast Denies pruritus, Denies lesions, Denies rash and Denies jaundice Neuro Reports Normal hearing present and Denies Abnormal speech present Endo Denies fatigue Alfonso/Lymph Details: Easy sweating Aller/Immun Denies throat swelling and Denies tongue swelling Physical Exam Vital Signs: Last Vital Signs Pulse 71 12/04/24 15:01 BP 142/65 H 12/04/24 15:01 BMI result Body Mass Index 27.1 Const General: cooperative, no acute distress, well developed and well groomed Nutritional Appearance: average body habitus and well nourished Orientation/consciousness: oriented to person, oriented to place and oriented to time Limitations: language barrier HEENT Head: Yes normocephalic and Yes atraumatic Eyes General: appearance normal, both eyes and all related structures Pupils: Equal, round and reactive pupils present Neck Neck: Yes normal visual inspection and Yes no lymphadenopathy Thyroid: Thyroid normal Resp Effort & Inspection: normal respiratory effort and able to speak in complete sentences Auscultation: clear to auscultation bilaterally Cardio Rate: regular rate Rhythm: regular rhythm Heart sounds: Normal, physiologic split S2 sound present Peripheral pulses: radial pulses present and posterior tibial pulses present GI Inspection: No distended and No Abdominal panniculus present Palpation (GI): Soft to palpation, nontender, no guarding, not rigid and No hepatosplenomegaly present Percussion: Yes normal to percussion Auscultation: normal bowel sounds Rectal Exam - Female: deferred Skin General skin exam: no rashes or lesions noted, turgor normal, skin not dry, no jaundice, No spider nevi and no striae Rashes: no rashes Nails: normal Neuro General: oriented to person, oriented to place and oriented to time Cranial nerves: Yes Equal, round and reactive pupils present and Yes Normal hearing present Speech: No Abnormal speech present Extrem General: Yes normal to inspection, No clubbing, No cyanosis and No edema Psych Appearance: grossly normal and well kempt Mental Status: mental status grossly normal Speech and movement: Normal speech and movement present Affect: normal affect Attitude: cooperative Thought process: Normal thought process present and not confabulating Thought content: Normal thought content present Insight: Limited insight present (Psych) Judgement: Limited judgement present (Psych) Assessment & Plan Assessment & Plan (1) GERD (gastroesophageal reflux disease): Code(s): K21.9 - Gastro-esophageal reflux disease without esophagitis Category: Medical (2) Nausea and vomiting: Code(s): R11.2 - Nausea with vomiting, unspecified Category: Medical (3) IBS (irritable bowel syndrome): Code(s): K58.9 - Irritable bowel syndrome, unspecified Category: Medical (4) Constipation: Code(s): K59.00 - Constipation, unspecified Category: Medical (5) Oral maggy: Comment: ? has 2 year burning tongue Code(s): B37.0 - Candidal stomatitis Category: Medical (6) Weight loss, abnormal: Code(s): R63.4 - Abnormal weight loss Category: Medical (7) Pleural effusion: Comment: 08/2024 [facility] CXR and ER visit with BNP > 4000, but neg stress test and echo Code(s): J90 - Pleural effusion, not elsewhere classified Category: Medical (8) Fatigue: Code(s): R53.83 - Other fatigue Category: Medical (9) Elevated brain natriuretic peptide (BNP) level: Code(s): R79.89 - Other specified abnormal findings of blood chemistry Category: Medical Plan Ottoniel#[id number] She is accompanied today by her who is supportive. With this final medication adjustment Analy now tells me she is moving her bowels every day and this seems to have alleviated many of her symptoms. She is having less pain and only rare nausea which is probably helped as well by her continuance of the Reglan. She has been doing MiraLax twice a day with 1 bisacodyl. She also continues on her dicyclomine and her omeprazole 40 mg a day. It seems that her burning tongue has been alleviated with the nystatin swish and swallow. She complains that her tongue is still irregular but I explained to her that that is fairly normal tongue physiology when she shows it to me. She has also gained significant weight about 16 lb since I 1st started working with her. She and her are very happy about this and she has been able to expand her diet to include a wider range of foods. Again in the past her diet was extremely restricted to eating only quinoa. She asks a couple of additional questions about why she sweats easily and I think this is simply related to hot flashes and female physiology as we age. I reassure her that this is not concerning. She also asks why chocolate seems to make her chest burn and I explained that this is a classic GERD trigger. Again she also had quite the health scare having pleural effusions of unexplained origin and an increased BNP. She has a pulmonology consult coming up as well as her chest CT. At this time I will see her after the chest CT CHEST CT 12/23/2024 Coding Level of Care Code Est Pt Level 3 (24835) Diagnoses GERD (gastroesophageal reflux disease) K21.9 Nausea and vomiting R11.2 IBS (irritable bowel syndrome) K58.9 Constipation K59.00 Oral maggy B37.0 Weight loss, abnormal R63.4 Pleural effusion J90 Fatigue R53.83 Elevated brain natriuretic peptide (BNP) level R79.89
[2024-12-04 15:01] VITALS: BP 142/65; PULSE 71; BMI 27.1
== END 2024-12-04 15:48 | disposition home or self-care (01) ==
LOC: HO.HGI 14:48
PROVIDERS: PCP Internal Medicine; Visit Provider Nurse Practitioner
DX: K21.9 Gastro-esophageal reflux disease without esophagitis (principal); R11.2 Nausea with vomiting, unspecified; K58.9 Irritable bowel syndrome, unspecified; K59.00 Constipation, unspecified; B37.0 Candidal stomatitis; R63.4 Abnormal weight loss; J90 Pleural effusion, not elsewhere classified; R53.83 Other fatigue; R79.89 Other specified abnormal findings of blood chemistry
CPT/HCPCS: 99213

== ENCOUNTER → 2024-12-04 14:47 | Outpatient (BNVA) | payer MEDICARE, SELFPAY | PROVIDERS: PCP Internal Medicine; Visit Provider Nurse Practitioner | DX: B37.0 Candidal stomatitis (principal); R11.2 Nausea with vomiting, unspecified; K59.00 Constipation, unspecified; J90 Pleural effusion, not elsewhere classified; K58.9 Irritable bowel syndrome, unspecified; R53.83 Other fatigue | CPT/HCPCS: 99212 ==

== ENCOUNTER 2025-01-01 13:33 | Outpatient (REF) | payer MEDICARE, SELFPAY ==
--- NOTE | ~2025-01-01 | CT_ITS ---
EXAMINATION: CT CHEST WITH CONTRAST CLINICAL INFORMATION: J90 - Pleural effusion, not elsewhere classified COMPARISON: This x-ray October 26, 2024 TECHNIQUE: Multidetector volumetric CT imaging of the chest was obtained after the administration of 50 mL of Omnipaque 350 intravenous contrast without immediate adverse reactions. Axial MIP volume rendering provided. Sagittal and coronal reformatted images were obtained. This CT examination was performed using dose optimization techniques as appropriate, variously including the following: *Automated exposure control *Adjustment of mA and/or kV according to patient size (this includes techniques or standardized protocols for targeted exams where dose is matched to indication/reason for exam; i.e. extremities or head) *Use of iterative reconstruction technique FINDINGS: LUNGS: There is moderate compressive atelectasis in the medial right lower lobe adjacent to large body osteophytes. The lungs are clear otherwise. MEDIASTINUM: There is an 8 millimeter nodule in the right thyroid demonstrates peripheral calcification, a benign pattern of calcification. There is minimal vascular calcification involving thoracic aorta. PLEURA: There is no pleural effusion. No pleural mass or thickening. AXILLA: No lymphadenopathy. UPPER ABDOMEN: Benign simple renal cysts present on the left. OSSEOUS STRUCTURES: Moderate superior endplate compression fractures present at L1 CT/CT chest w IV con IMPRESSION: Unremarkable examination. Specifically, no pleural abnormality was identified. There is a moderate superior L1 compression fracture. Fleischner guidelines were followed. Electronically signed by: Vance Pace MD 01/01/2025 02:25 PM EDT
[2025-01-01] MEDS: iohexoL 350 MG/ML 100 ML INFUS..BTL IV (14:15)
--- OUTSIDE RECORDS SUMMARY | 2025-01-01 14:33 | XMS_ITS | Patient Health Record ---
Author Organization [facility] Address [address] [place] [address] Care Team Providers Care Nuclear Supervising Operator Name Role Phone LESLIHari MARQUITA ECHEVARRIA Primary Care Provider Parisa Hurley Unavailable [phone] Allergies Allergen (clinical drug ingredient) Drug/Non Drug [...] day(s) 04/21/2024 Active Vitamin D3 1.25 MG (70788 UT) 1 capsule Orally Active oxyCODONE HCl 5 MG TAKE 1 TABLET EVERY 6 HOURS BY ORAL ROUTE NEEDED, FOR PAIN. Oral; Duration: 6 Days Active Venlafaxine HCl ER 150 MG 2 tablets with food Orally Once a day; Duration: 30 days Active Senokot Active lamoTRIgine 150 MG 1 tablet Orally 150 mg in am, 150 mg at night [facility] 11/02/2011 Active Omeprazole 40MG 1 ORAL daily; Durati on: -3 [facility] 11/02/2011 Active Cyclobenzaprine HCl 10 MG [...] Status Risk Notes Problem Postmenopausal atrophic vaginitis (12313139) Postmenopausal atrophic vaginitis (N95.2) Active confirmed Problem Urinary incontinence (732009203) Unspecified urinary incontinence (R32) Active confirmed Problem Hyperlipidemia (61853220) Other and unspecified hyperlipidemia (272.4) Active confirmed Major Problem Obesity (234204834) Obesity, unspecified (278.00) Active confirmed Diag Problem Depressive disorder (62603271) Depressive disorder, not elsewhere classified (311) Active confirmed Major Problem Benign essential hypertension (2683874) Essential hypertension, benign (401.1) Active confirmed Major Problem Esophageal reflux (945589190) Esophageal reflux (530.81) Active confirmed Major Problem Cyst of ovary (47458976) Other and unspecified ovarian cyst (620.2) Active confirmed Major Problem Postmenopausal bleeding (57192367) Postmenopausal bleeding (627.1) Active confirmed Diag Problem Menopausal symptom (96473042) Symptomatic menopausal or female climacteric states (627.2) Active confirmed Major Problem Osteoarthritis (648889718) Osteoarthrosis, unspecified whether generalized or localized, unspecified site (715.90) Active confirmed Major Problem Muscle pain (11041464) Unspecified myalgia and myositis (729.1) Active confirmed Major Problem Gynecological examination normal (945477837338459) Routine gynecological examination (V72.31) Active confirmed Major Problem Screening for malignant neoplasm of colon (379364428) Special screening for malignant neoplasms, colon (V76.51) Active confirmed Major Vital Signs Temperature 98.1 degrees Fahrenheit 04/21/2024 Blood pressure diastolic 80 mm Hg 04/21/2024 Height 62.25 in 04/21/2024 Blood pressure systolic 122 mm Hg 04/21/2024 Weight 160 lbs 04/21/2024 BMI 29.03 kg/m2 04/21/2024 Encounters Encounter Location Date Provider Diagnosis [address] [place] [address] 04/21/2024 Parisa Pagan Encounter for gynecological examination [...] Provider Name:Parisa ramirez, 04/26/2025 08:40:00 AM, [address], [address], [place], [address], Insurance Providers Payer Name Payer Address Payer Phone Subscriber Number Group Number Insured Name Patient Relationship to Insured Coverage Start Date Coverage End Date [facility] [address] [place] [address] [id number] RUPESH MOSER Spouse - patient is the spouse of the insured [employer] [address] [place] [address] [id number] LEONEL MOSER Self - patient is the [...]
[2025-01-01 15:55] LABS: Creatinine POC 0.9 mg/dL (0.5-1.4); GFR POC > 60
== END 2025-01-01 13:34 | disposition home or self-care (01) ==
LOC: HO.CT 13:33
PROVIDERS: PCP Internal Medicine; Visit Provider Nurse Practitioner
DX: J90 Pleural effusion, not elsewhere classified (principal); R06.02 Shortness of breath; R79.89 Other specified abnormal findings of blood chemistry
CPT/HCPCS: 71260; 82565; Q9967

== ENCOUNTER → 2025-01-01 13:39 | Outpatient (BNV) | payer MEDICARE, SELFPAY | PROVIDERS: PCP Internal Medicine; Visit Provider Radiology Diagnostic Radiology | DX: J90 Pleural effusion, not elsewhere classified (principal); S32.010A Wedge compression fracture of first lumbar vertebra, initial encounter for closed fracture | CPT/HCPCS: 71260 ==

== ENCOUNTER 2025-01-15 14:29 | Outpatient (AMB) | payer MEDICARE, SELFPAY ==
--- NOTE | 2025-01-15 14:34 | MHC.OFFVIS ---
Vital Signs 01/15/25 14:35 Height 5 ft 6 in Weight 182 lb BMI 29.4 BP 144/56 H Blood Pressure Location Lt brachial Position Sitting Pulse 69 Intake Visit Reasons: go over ct results Intake Note: Analy presents in office today in follow up for CT results. CC: Patient states that she has been gaining a lot of weight and is wondering why she's gain so much weight. She states that she is eating more and has notice more appetite. Assistant Director Of Financial Aid Services: Assistant Director Of Financial Aid Present Assistant Director Of Financial Aid Name: [id number] Allergies ibuprofen Allergy (Severe, Verified 01/15/25 14:47) stomach bleed HPI HPI go over ct results: Details: Assessment & Plan (1) GERD (gastroesophageal reflux disease): Code(s): K21.9 - Gastro-esophageal reflux disease without esophagitis Category: Medical (2) Nausea and vomiting: Code(s): R11.2 - Nausea with vomiting, unspecified Category: Medical (3) IBS (irritable bowel syndrome): Code(s): K58.9 - Irritable bowel syndrome, unspecified Category: Medical (4) Constipation: Code(s): K59.00 - Constipation, unspecified Category: Medical (5) Oral maggy: Comment: ? has 2 year burning tongue Code(s): B37.0 - Candidal stomatitis Category: Medical (6) Weight loss, abnormal: Code(s): R63.4 - Abnormal weight loss Category: Medical (7) Pleural effusion: Comment: 08/2024 [facility] CXR and ER visit with BNP > 4000, but neg stress test and echo Code(s): J90 - Pleural effusion, not elsewhere classified Category: Medical (8) Fatigue: Code(s): R53.83 - Other fatigue Category: Medical (9) Elevated brain natriuretic peptide (BNP) level: Code(s): R79.89 - Other specified abnormal findings of blood chemistry Category: Medical Plan [facility]#[id number] She is accompanied today by her who is supportive. With this final medication adjustment Analy now tells me she is moving her bowels every day and this seems to have alleviated many of her symptoms. She is having less pain and only rare nausea which is probably helped as well by her continuance of the Reglan. She has been doing MiraLax twice a day with 1 bisacodyl. She also continues on her dicyclomine and her omeprazole 40 mg a day. It seems that her burning tongue has been alleviated with the nystatin swish and swallow. She complains that her tongue is still irregular but I explained to her that that is fairly normal tongue physiology when she shows it to me. She has also gained significant weight about 16 lb since I 1st started working with her. She and her are very happy about this and she has been able to expand her diet to include a wider range of foods. Again in the past her diet was extremely restricted to eating only quinoa. She asks a couple of additional questions about why she sweats easily and I think this is simply related to hot flashes and female physiology as we age. I reassure her that this is not concerning. She also asks why chocolate seems to make her chest burn and I explained that this is a classic GERD trigger. Again she also had quite the health scare having pleural effusions of unexplained origin and an increased BNP. She has a pulmonology consult coming up as well as her chest CT. At this time I will see her after the chest CT CHEST CT 01/01/2025 FINDINGS: LUNGS: There is moderate compressive atelectasis in the medial right lower lobe adjacent to large body osteophytes. The lungs are clear otherwise. MEDIASTINUM: There is an 8 millimeter nodule in the right thyroid demonstrates peripheral calcification, a benign pattern of calcification. There is minimal vascular calcification involving thoracic aorta. PLEURA: There is no pleural effusion. No pleural mass or thickening. AXILLA: No lymphadenopathy. UPPER ABDOMEN: Benign simple renal cysts present on the left. OSSEOUS STRUCTURES: Moderate superior endplate compression fractures present at L1 CT/CT chest w IV con IMPRESSION: Unremarkable examination. Specifically, no pleural abnormality was identified. There is a moderate superior L1 compression fracture. Today's visit [facility] Medical History GERD (gastroesophageal reflux disease) Constipation Surgical History H/O esophagogastroduodenoscopy H/O colonoscopy H/O bilateral oophorectomy H/O right wrist surgery History of knee replacement Family History Father Hypertension Heart disease Mother Breast CA Sister Stomach cancer Social History Alcohol intake: never Patient Tobacco Use Status: Never used Tobacco Review of Systems Const Denies fatigue, Denies fever(s), Denies night sweats, Denies poor appetite, Reports weight gain and Denies weight loss Eyes Details: glassesa Reports requires corrective lenses ENT Reports Normal hearing present, Denies dental pain, Denies dysphagia, Denies hearing loss, Denies mouth pain, Denies odynophagia, Denies throat swelling, Denies tongue swelling and Reports other (Dentition adequate) Card Reports no additional complaints and Reports dyspnea Resp Reports dyspnea GI Details: Denies abdominal pain, Denies melena, Denies bloating, Denies hematochezia, Reports constipation, Denies GI cramping, Denies dysphagia, Denies excessive flatus, Reports early satiety, Reports heartburn, Denies diarrhea, Denies nausea, Denies odynophagia, Denies vomiting and Denies hematemesis Reports nocturia Musc Reports back pain Skin/Breast Denies pruritus, Denies lesions, Denies rash and Denies jaundice Neuro Reports Normal hearing present and Denies Abnormal speech present Endo Denies fatigue Aller/Immun Denies throat swelling and Denies tongue swelling Physical Exam Vital Signs: BMI result Body Mass Index 29.4 Const General: cooperative, no acute distress, well developed and well groomed Nutritional Appearance: well nourished and overweight Orientation/consciousness: oriented to person, oriented to place and oriented to time Limitations: language barrier and other limitations HEENT Head: Yes normocephalic and Yes atraumatic Eyes General: appearance normal, both eyes and all related structures Pupils: Equal, round and reactive pupils present Neck Neck: Yes normal visual inspection and Yes no lymphadenopathy Thyroid: Thyroid normal Resp Effort & Inspection: normal respiratory effort and able to speak in complete sentences Auscultation: clear to auscultation bilaterally Cardio Rate: regular rate Rhythm: regular rhythm Heart sounds: Normal, physiologic split S2 sound present Peripheral pulses: radial pulses present and posterior tibial pulses present GI Inspection: No distended, No Abdominal panniculus present and Yes obesity Palpation (GI): Soft to palpation, nontender, no guarding, not rigid and Hepatosplenomegaly present Percussion: Yes normal to percussion Auscultation: normal bowel sounds Rectal Exam - Female: deferred Skin General skin exam: no rashes or lesions noted, turgor normal, skin not dry, no jaundice, No spider nevi and no striae Rashes: no rashes Nails: normal Neuro General: oriented to person, oriented to place and oriented to time Cranial nerves: Yes Equal, round and reactive pupils present and Yes Normal hearing present Speech: No Abnormal speech present Extrem General: Yes normal to inspection, No clubbing, No cyanosis and No edema Psych Appearance: grossly normal and well kempt Mental Status: mental status grossly normal Speech and movement: Normal speech and movement present Affect: normal affect Attitude: cooperative Thought process: not confabulating and Loose association thought process present Thought content: Normal thought content present Insight: Limited insight present (Psych) Judgement: Limited judgement present (Psych) Results Reviewed Results Reviewed: CHEST CT 01/01/2025 FINDINGS: LUNGS: There is moderate compressive atelectasis in the medial right lower lobe adjacent to large body osteophytes. The lungs are clear otherwise. MEDIASTINUM: There is an 8 millimeter nodule in the right thyroid demonstrates peripheral calcification, a benign pattern of calcification. There is minimal vascular calcification involving thoracic aorta. PLEURA: There is no pleural effusion. No pleural mass or thickening. AXILLA: No lymphadenopathy. UPPER ABDOMEN: Benign simple renal cysts present on the left. OSSEOUS STRUCTURES: Moderate superior endplate compression fractures present at L1 CT/CT chest w IV con IMPRESSION: Unremarkable examination. Specifically, no pleural abnormality was identified. There is a moderate superior L1 compression fracture. Assessment & Plan Assessment & Plan (1) Compression fracture of L1 lumbar vertebra: Code(s): S32.010A - Wedge compression fracture of first lumbar vertebra, initial encounter for closed fracture Category: Medical (2) Lumbar degenerative disc disease: Code(s): M51.36 - Other intervertebral disc degeneration, lumbar region Category: Medical (3) Compression atelectasis: Comment: Lower rt lung r/t osteophytes in spine Code(s): J98.11 - Atelectasis Category: Medical (4) GERD (gastroesophageal reflux disease): Code(s): K21.9 - Gastro-esophageal reflux disease without esophagitis Category: Medical (5) Nausea and vomiting: Code(s): R11.2 - Nausea with vomiting, unspecified Category: Medical (6) Constipation: Code(s): K59.00 - Constipation, unspecified Category: Medical (7) IBS (irritable bowel syndrome): Code(s): K58.9 - Irritable bowel syndrome, unspecified Category: Medical Plan [facility] #[id number] Her current GI regimen consists of dicyclomine, metoclopramide, omeprazole, <del>bisacodyl</del> and MiraLax. Subjective Patient presents for follow-up with concerns about increased weight and ongoing constipation. Reports constipation is controlled when using MiraLAX; stools do not pass without it. Previously used bisacodyl in addition to MiraLAX but developed abdominal pain when taking both together, so she stopped bisacodyl and is using only MiraLAX with good effect. She endorses intermittent shortness of breath, particularly when seated or reclining; describes it as dyspnea rather than chest pain. She also reports nocturia, voiding 3?4 times nightly despite daily use of an overactive bladder medication prescribed by her primary care provider; symptoms are interrupting sleep. She is awaiting a urology appointment. She notes episodic heartburn, including after eating a raspberry-flavored cereal; grilled chicken did not provoke symptoms. She avoids dairy products and reports certain processed meats can trigger heartburn. Relevant Past Medical, Social, and Family History - Prior exposure to tuberculosis via father decades ago; treated in the past. No TB-related abnormality seen on recent imaging per today?s discussion. - Known spinal osteoarthritis; taking meloxicam for arthritis pain. Objective - Chest CT reviewed: right-sided atelectasis attributed to spinal osteophytes impinging on the lung; no evidence of pulmonary edema. Significant spinal degenerative changes noted. - Imaging also demonstrates a compression fracture at L1. - Pre-CT renal function test was normal to permit contrast administration. Assessment & Plan Constipation: Chronic constipation responsive to osmotic laxative. - Continue MiraLAX as currently effective. - Hold bisacodyl; may use as needed only if constipation recurs or MiraLAX becomes insufficient. - Continue dicyclomine and metoclopramide as previously prescribed. Dyspnea/shortness of breath: Intermittent dyspnea when seated/reclining. Chest CT shows right-sided atelectasis likely due to osteophytic impingement from spinal arthritis; no fluid overload on imaging. - Reassurance provided regarding CT findings; no acute pulmonary process identified. - Conservative management; monitor symptoms and return sooner if dyspnea worsens or new symptoms develop. L1 vertebral compression fracture with spinal osteoarthritis: Imaging-confirmed L1 compression fracture; likely contributor to back discomfort. - Continue meloxicam for pain as tolerated. - Discussed option of vertebral augmentation (cement injection) in the future if pain persists or function is limited; patient may consider if symptoms warrant. Overactive bladder with nocturia: Persistent nocturia (3?4 times/night) despite therapy; currently on Myrbetriq 50 mg daily per PCP, with inadequate response. - Advise patient to contact PCP to report lack of efficacy; consider alternative pharmacotherapy. - Urology referral pending; encourage patient to follow up to secure appointment. Heartburn/dyspepsia: Episodic; triggered by raspberry-flavored cereal; dairy already avoided. - Dietary modification: avoid the offending cereal/flavoring and other known triggers; trial alternative cereals. - Watchful waiting; if symptoms recur or worsen, will resume treatment previously used for reflux per prior care plan. Weight gain: Patient notes increased appetite and weight. - Counseling provided; monitor weight and dietary intake; focus on avoiding excessive weight gain. Follow-up: Return in 6 months, or sooner for worsening GI symptoms, increasing dyspnea, or uncontrolled pain. Medications: New omeprazole 40 mg PO QAM 30 caps 6RF K21.9 - Gastro-esophageal reflux disease without esophagitis Refilled metoclopramide HCl (Reglan) 10 mg PO QIDACHS 120 tabs 6RF polyethylene glycol 3350 (Miralax) 17 grams PO DAILY 510 grams 6RF 30 days On Hold bisacodyl (Dulcolax (bisacodyl)) Hold Comment: Doctor's Order 10 mg (2 x 5 mg) PO BEDTIME 60 tabs 6RF 30 days Coding Level of Care Code Est Pt Level 4 (87865) Diagnoses Compression fracture of L1 lumbar vertebra S32.010A Lumbar degenerative disc disease M51.36 Compression atelectasis J98.11 GERD (gastroesophageal reflux disease) K21.9 Nausea and vomiting R11.2 Constipation K59.00 IBS (irritable bowel syndrome) K58.9 Time Spent (min) 38
[2025-01-15 14:35] VITALS: BP 144/56; PULSE 69; BMI 29.4
--- OUTSIDE RECORDS SUMMARY | 2025-01-15 21:33 | XMS_ITS | Patient Health Record ---
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 Oral; Duration: 6 Days Active Venlafaxine HCl ER 150 MG 2 tablets with food Orally Once a day; Duration: 30 days Active Senokot Active lamoTRIgine 150 MG 1 tablet Orally 150 mg in am, 150 mg at night [facility] 11/02/2011 Active Omeprazole 40MG 1 ORAL daily; Durati on: -3 [facility] 11/02/2011 Active Cyclobenzaprine HCl 10 MG 1 [...] Status Risk Notes Problem Postmenopausal atrophic vaginitis (79641708) Postmenopausal atrophic vaginitis (N95.2) Active confirmed Problem Urinary incontinence (342306205) Unspecified urinary incontinence (R32) Active confirmed Problem Hyperlipidemia (76740194) Other and unspecified hyperlipidemia (272.4) Active confirmed Major Problem Obesity (799527218) Obesity, unspecified (278.00) Active confirmed Diag Problem Depressive disorder (23008552) Depressive disorder, not elsewhere classified (311) Active confirmed Major Problem Benign essential hypertension (6983438) Essential hypertension, benign (401.1) Active confirmed Major Problem Esophageal reflux (526846170) Esophageal reflux (530.81) Active confirmed Major Problem Cyst of ovary (19921952) Other and unspecified ovarian cyst (620.2) Active confirmed Major Problem Postmenopausal bleeding (48531121) Postmenopausal bleeding (627.1) Active confirmed Diag Problem Menopausal symptom (59720048) Symptomatic menopausal or female climacteric states (627.2) Active confirmed Major Problem Osteoarthritis (080383274) Osteoarthrosis, unspecified whether generalized or localized, unspecified site (715.90) Active confirmed Major Problem Muscle pain (63079330) Unspecified myalgia and myositis (729.1) Active confirmed Major Problem Gynecological examination normal (975713610011569) Routine gynecological examination (V72.31) Active confirmed Major Problem Screening for malignant neoplasm of colon (335983377) Special screening for malignant neoplasms, colon (V76.51) Active confirmed Major Vital Signs Temperature 98.1 degrees Fahrenheit 04/21/2024 Blood pressure diastolic 80 mm Hg 04/21/2024 Height 62.25 in 04/21/2024 Blood pressure systolic 122 mm Hg 04/21/2024 Weight 160 lbs 04/21/2024 BMI 29.03 kg/m2 04/21/2024 Encounters Encounter Location Date Provider Diagnosis [address] [place] [address] 04/21/2024 Parisa Pagan Encounter for gynecological examination [...] 04/21/2024 MAMMOGRAM, SCREENING 08/25/2015 Urinalysis 12/30/2020 Urinalysis 06/23/2018 Urinalysis 12/23/2019 THIN PREP,HPV,TAYLOR IF HPV+ (>29YR)(SCRN) 03/22/2017 BONE DENSITY 04/15/2023 BONE DENSITY 06/23/2018 BONE DENSITY 03/22/2017 BONE DENSITY 04/12/2022 MM Digital Mammo Screening 04/12/2022 MM Digital Mammo Screening 12/30/2020 MM Digital Mammo Screening 04/21/2024 MM Digital Mammo Screening 04/15/2023 PELVIC ULTRASOUND W/TRANSVAGINAL 019 Next Appt Details Provider Name:Parisa ramirez, 04/26/2025 08:40:00 AM, [address], [address], [place], [address], Insurance Providers Payer Name Payer Address Payer Phone Subscriber Number Group Number Insured Name Patient Relationship to Insured Coverage Start Date Coverage End Date [facility] [address] [place] [address] [id number] RUPESH MOSER Spouse - patient is the spouse of the insured [employer] [address] [place] [address] [id number] LEONEL MOSER Self - patient is the [...]
== END 2025-01-15 15:28 | disposition home or self-care (01) ==
LOC: HO.HGI 14:29
PROVIDERS: PCP Internal Medicine; Visit Provider Nurse Practitioner
DX: S32.010A Wedge compression fracture of first lumbar vertebra, initial encounter for closed fracture (principal); M51.369 Other intervertebral disc degeneration, lumbar region without mention of lumbar back pain or lower extremity pain; J98.11 Atelectasis; K21.9 Gastro-esophageal reflux disease without esophagitis; R11.2 Nausea with vomiting, unspecified; K59.00 Constipation, unspecified; K58.9 Irritable bowel syndrome, unspecified
CPT/HCPCS: 99214

== ENCOUNTER → 2025-01-15 14:29 | Outpatient (BNVA) | payer MEDICARE, SELFPAY | PROVIDERS: PCP Internal Medicine; Visit Provider Nurse Practitioner | DX: Z71.2 Person consulting for explanation of examination or test findings (principal); M51.360 Other intervertebral disc degeneration, lumbar region with discogenic back pain only; S32.010A Wedge compression fracture of first lumbar vertebra, initial encounter for closed fracture; J98.11 Atelectasis; K21.9 Gastro-esophageal reflux disease without esophagitis; R11.2 Nausea with vomiting, unspecified; K59.00 Constipation, unspecified; K58.9 Irritable bowel syndrome, unspecified | CPT/HCPCS: 99212 ==

== ENCOUNTER → 2025-02-04 13:43 | Outpatient (BNVA) | payer MEDICARE, SELFPAY | PROVIDERS: PCP Internal Medicine; Visit Provider Nurse Practitioner | DX: K58.1 Irritable bowel syndrome with constipation (principal); R10.32 Left lower quadrant pain; K21.9 Gastro-esophageal reflux disease without esophagitis; Z79.899 Other long term (current) drug therapy | CPT/HCPCS: 99212 ==

== ENCOUNTER → 2025-02-04 13:43 | Outpatient (AMB) | payer MEDICARE, SELFPAY ==
--- NOTE | 2025-02-04 13:47 | MHC.OFFVIS ---
Vital Signs 02/04/25 13:48 Height 5 ft 6 in Weight 175 lb BMI 28.2 BP 128/59 L Blood Pressure Location Lt brachial Position Sitting Pulse 68 Intake Visit Reasons: Follow up post pandrial sx exacerbation Intake Note: Patient follow up for post pandrial sx exacerbation Patient cc: abdominal pain, constipation, headaches, denies any other GI issues. 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 Accompanied by: Spouse Allergies ibuprofen Allergy (Severe, Verified 02/04/25 13:46) stomach bleed HPI HPI Follow up post pandrial sx exacerbation: Details: Assessment & Plan (1) Compression fracture of L1 lumbar vertebra: Code(s): S32.010A - Wedge compression fracture of first lumbar vertebra, initial encounter for closed fracture Category: Medical (2) Lumbar degenerative disc disease: Code(s): M51.36 - Other intervertebral disc degeneration, lumbar region Category: Medical (3) Compression atelectasis: Comment: Lower rt lung r/t osteophytes in spine Code(s): J98.11 - Atelectasis Category: Medical (4) GERD (gastroesophageal reflux disease): Code(s): K21.9 - Gastro-esophageal reflux disease without esophagitis Category: Medical (5) Nausea and vomiting: Code(s): R11.2 - Nausea with vomiting, unspecified Category: Medical (6) Constipation: Code(s): K59.00 - Constipation, unspecified Category: Medical (7) IBS (irritable bowel syndrome): Code(s): K58.9 - Irritable bowel syndrome, unspecified Category: Medical Plan Welsh #[id number] Her current GI regimen consists of dicyclomine, metoclopramide, omeprazole, <del>bisacodyl</del> and MiraLax. Subjective Patient presents for follow-up with concerns about increased weight and ongoing constipation. Reports constipation is controlled when using MiraLAX; stools do not pass without it. Previously used bisacodyl in addition to MiraLAX but developed abdominal pain when taking both together, so she stopped bisacodyl and is using only MiraLAX with good effect. She endorses intermittent shortness of breath, particularly when seated or reclining; describes it as dyspnea rather than chest pain. She also reports nocturia, voiding 3?4 times nightly despite daily use of an overactive bladder medication prescribed by her primary care provider; symptoms are interrupting sleep. She is awaiting a urology appointment. She notes episodic heartburn, including after eating a raspberry-flavored cereal; grilled chicken did not provoke symptoms. She avoids dairy products and reports certain processed meats can trigger heartburn. Relevant Past Medical, Social, and Family History - Prior exposure to tuberculosis via father decades ago; treated in the past. No TB-related abnormality seen on recent imaging per today?s discussion. - Known spinal osteoarthritis; taking meloxicam for arthritis pain. Objective - Chest CT reviewed: right-sided atelectasis attributed to spinal osteophytes impinging on the lung; no evidence of pulmonary edema. Significant spinal degenerative changes noted. - Imaging also demonstrates a compression fracture at L1. - Pre-CT renal function test was normal to permit contrast administration. Assessment & Plan Constipation: Chronic constipation responsive to osmotic laxative. - Continue MiraLAX as currently effective. - Hold bisacodyl; may use as needed only if constipation recurs or MiraLAX becomes insufficient. - Continue dicyclomine and metoclopramide as previously prescribed. Dyspnea/shortness of breath: Intermittent dyspnea when seated/reclining. Chest CT shows right-sided atelectasis likely due to osteophytic impingement from spinal arthritis; no fluid overload on imaging. - Reassurance provided regarding CT findings; no acute pulmonary process identified. - Conservative management; monitor symptoms and return sooner if dyspnea worsens or new symptoms develop. L1 vertebral compression fracture with spinal osteoarthritis: Imaging-confirmed L1 compression fracture; likely contributor to back discomfort. - Continue meloxicam for pain as tolerated. - Discussed option of vertebral augmentation (cement injection) in the future if pain persists or function is limited; patient may consider if symptoms warrant. Overactive bladder with nocturia: Persistent nocturia (3?4 times/night) despite therapy; currently on Myrbetriq 50 mg daily per PCP, with inadequate response. - Advise patient to contact PCP to report lack of efficacy; consider alternative pharmacotherapy. - Urology referral pending; encourage patient to follow up to secure appointment. Heartburn/dyspepsia: Episodic; triggered by raspberry-flavored cereal; dairy already avoided. - Dietary modification: avoid the offending cereal/flavoring and other known triggers; trial alternative cereals. - Watchful waiting; if symptoms recur or worsen, will resume treatment previously used for reflux per prior care plan. Weight gain: Patient notes increased appetite and weight. - Counseling provided; monitor weight and dietary intake; focus on avoiding excessive weight gain. Follow-up: Return in 6 months, or sooner for worsening GI symptoms, increasing dyspnea, or uncontrolled pain. Medications: New omeprazole 40 mg PO QAM 30 caps 6RF K21.9 - Gastro-esophageal reflux disease without esophagitis Refilled metoclopramide HCl (Reglan) 10 mg PO QIDACHS 120 tabs 6RF polyethylene glycol 3350 (Miralax) 17 grams PO DAILY 510 grams 6RF 30 days On Hold bisacodyl (Dulcolax (bisacodyl)) Hold Comment: Doctor's Order 10 mg (2 x 5 mg) PO BEDTIME 60 tabs 6RF 30 days TODAYS VISIT Welsh # PFSH Medical History GERD (gastroesophageal reflux disease) Constipation Surgical History H/O esophagogastroduodenoscopy H/O colonoscopy H/O bilateral oophorectomy H/O right wrist surgery History of knee replacement Family History Father Hypertension Heart disease Mother Breast CA Sister Stomach cancer Social History Alcohol intake: never Patient Tobacco Use Status: Never used Tobacco Physical Exam Vital Signs: Last Vital Signs Pulse 68 02/04/25 13:48 BP 128/59 L 02/04/25 13:48 BMI result Body Mass Index 28.2 Assessment & Plan Assessment & Plan (1) LLQ abdominal pain: Code(s): R10.32 - Left lower quadrant pain Category: Medical (2) Constipation: Code(s): K59.00 - Constipation, unspecified Category: Medical (3) IBS (irritable bowel syndrome): Code(s): K58.9 - Irritable bowel syndrome, unspecified Category: Medical (4) GERD (gastroesophageal reflux disease): Code(s): K21.9 - Gastro-esophageal reflux disease without esophagitis Category: Medical Plan Welsh #[id number] Her current GI regimen consists of dicyclomine, metoclopramide, omeprazole, <del>bisacodyl</del> and MiraLax. Subjective Patient reports 4 days of a bad headache and lower abdominal pain. She notes new food-related abdominal pain, particularly with bread (worse with white bread) and processed cereals; bread with soup also provokes pain. She has been mixing bread with water and avoiding butter/cheese. She has longstanding morning use of MiraLAX; recently, after taking it she experiences a brief, mild pain that resolves. She indicates the pain is ?down low? and at times ?all over.? She has constipation: last bowel movement was Saturday and was very hard. She had been tolerating bread previously; this sensitivity began over the past several days. She is taking all her usual medications, including a blue pill four times daily, with no new medications added. She has switched from white bread to darker bread. She is traveling to [facility] for 40 days. She inquired whether the pain could represent cancer; I explained concern for infection (diverticulitis) given constipation. Objective Assessment & Plan Constipation with abdominal pain: Constipation with hard stools and lower abdominal pain, temporally associated with intake of white bread/processed cereals; reports limited bowel movements and stool hardness. - Increase polyethylene glycol (MiraLAX) to twice daily for now to re-establish regular bowel movements. - If diarrhea develops, reduce back to once daily. - Dietary counseling: avoid or minimize white breads, white rice, and highly processed cereals which can be constipating. If consuming these foods (e.g., while traveling), consider increasing MiraLAX to twice daily proactively. 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 Suspected diverticulitis: Empiric treatment initiated due to travel and clinical context of constipation-associated lower abdominal pain. - Start antibiotic therapy as discussed. - Education provided on diverticulitis as an infection arising in diverticula in the setting of constipation. - Call if symptoms do not improve; follow up after return from travel. Medication management for travel: Needs adequate supply during 40-day trip to [facility]. - Provide 90-day supply of current medications. - Keep existing scheduled appointment; call if earlier evaluation is needed after return. Medications: New amoxicillin-pot clavulanate 875-125 mg 1 tab PO BID 28 tabs 0RF 14 days R10.32 - Left lower quadrant pain Changed From polyethylene glycol 3350 (Miralax) 17 grams PO DAILY 30 days 510 grams 6RF To polyethylene glycol 3350 (Miralax) 17 grams PO BID 30 days 1,020 grams 6RF From omeprazole 40 mg PO QAM 30 caps 6RF K21.9 - Gastro-esophageal reflux disease without esophagitis To omeprazole 40 mg PO QAM 90 caps 0RF 90 days K21.9 - Gastro-esophageal reflux disease without esophagitis From dicyclomine 10 mg PO BID To dicyclomine 10 mg PO BID 180 caps 0RF 90 days From polyethylene glycol 3350 (Miralax) 17 grams PO BID 30 days 1,020 grams 6RF To polyethylene glycol 3350 (Miralax) 17 grams PO BID 3,060 grams 0RF 90 days Refilled metoclopramide HCl (Reglan) 10 mg PO QIDACHS 360 tabs 0RF Coding Level of Care Code Est Pt Level 3 (80038) Diagnoses LLQ abdominal pain R10.32 Constipation K59.00 IBS (irritable bowel syndrome) K58.9 GERD (gastroesophageal reflux disease) K21.9
[2025-02-04 13:48] VITALS: BP 128/59; PULSE 68; BMI 28.2
== END ==
LOC: HO.HGI 13:43
PROVIDERS: PCP Internal Medicine; Visit Provider Nurse Practitioner
DX: R10.32 Left lower quadrant pain (principal); K59.00 Constipation, unspecified; K58.9 Irritable bowel syndrome, unspecified; K21.9 Gastro-esophageal reflux disease without esophagitis
CPT/HCPCS: 99213